=== PATIENT | female | born 1930 | race Caucasian/White ===

== ENCOUNTER → 2017-04-07 | Outpatient (CLI) | payer MEDICARE | LOC: M PLARAD 12:39 | DX: C18.9 Malignant neoplasm of colon, unspecified (principal) | CPT/HCPCS: 78815 ==

== ENCOUNTER → 2018-06-28 | Outpatient (REF) | payer MEDICARE, OTHER | LOC: M LAB LCGH 13:44 | PROVIDERS: ATTEND Surgery | DX: K81.1 Chronic cholecystitis (principal) ==

== ENCOUNTER 2019-06-03 01:06 | Inpatient (IN) | payer MEDICARE, MEDICAID ==
[~2019-06-03] VITALS: Ht 157.5 cm; Wt 68.5 kg
[2019-06-03] VITALS (11 sets, daily range): BP systolic 91–179; BP diastolic 54–80
[2019-06-03] MEDS ORDERED: SERT50TA29 PO (01:58)
[2019-06-03] MEDS ORDERED: HYOS125TA PO (01:58)
[2019-06-03] MEDS ORDERED: ISOS30TA4 PO (01:58)
[2019-06-03] MEDS ORDERED: TYLE650T38 PO (01:58)
[2019-06-03] MEDS ORDERED: GABA-1171 PO (01:58)
[2019-06-03] MEDS ORDERED: ASPI1CHW3 PO (01:58)
[2019-06-03] MEDS ORDERED: FERR325T16 PO (01:58)
[2019-06-03] MEDS ORDERED: TAB-TAB PO (01:58)
[2019-06-03] MEDS ORDERED: CYAN100050 PO (01:58)
[2019-06-03] MEDS ORDERED: ANTI2TAB17 PO (01:58)
[2019-06-03] MEDS ORDERED: ATOR40TA75 PO (01:58)
[2019-06-03] MEDS ORDERED: FIBE625T PO (01:58)
[2019-06-03] MEDS ORDERED: ONDA-83 PO (01:58)
[2019-06-03] MEDS ORDERED: D-50CAP PO (01:58)
[2019-06-03] MEDS ORDERED: PRED20TA PO (01:58)
[2019-06-03] MEDS ORDERED: CARV3.12 PO (01:58)
[2019-06-03] MEDS ORDERED: OCUVTAB8 PO (01:58)
[2019-06-03] MEDS ORDERED: XALA0.007 OU (01:58)
[2019-06-03] MEDS ORDERED: LIDO5OIN19 EXT (01:58)
[2019-06-03 02:02] LABS: BASO % 0.2 % (0.0-1.0); EOS % 0.2 % (0.0-3.0); HEMATOCRIT 29.6 % (36.0-47.0); HEMOGLOBIN 9.8 g/dl (12.0-15.5); LYMPH # 2.8 10^3/uL (1.5-5.0); LYMPH % 25.5 % (24.0-44.0); MEAN CORPUSCULAR HGB CONC 33.1 g/dl (32.0-36.5); MEAN CORPUSCULAR VOLUME 93.7 fl (80.0-96.0); MONO % 9.5 % (0.0-5.0); NEUTROPHILS % 64.3 % (36.0-66.0); PLATELET COUNT, AUTOMATED 319 10^3/uL (150-450); RED BLOOD COUNT 3.16 10^6/uL (4.00-5.40); WHITE BLOOD COUNT 10.9 10^3/uL (4.0-10.0)
[2019-06-03 02:12] LABS: INR 1.27; PROTHROMBIN TIME 15.6 SECONDS (11.8-14.0)
[2019-06-03 02:32] LABS: BLOOD UREA NITROGEN 20 MG/DL (7-18); CALCIUM LEVEL 8.6 MG/DL (8.8-10.2); CARBON DIOXIDE LEVEL 28 MEQ/L (21-32); CHLORIDE LEVEL 108 MEQ/L (98-107); CREATININE FOR GFR 0.74 MG/DL (0.55-1.30); FERRITIN 66 NG/ML (8-252); GLOMERULAR FILTRATION RATE > 60.0 (>32); GLUCOSE, FASTING 104 MG/DL (70-100); IRON (FE) 40 UG/DL (50-170); PERCENT SATURATION 12.1 % (13.2-45.0); POTASSIUM SERUM 4.1 MEQ/L (3.5-5.1); SODIUM LEVEL 139 MEQ/L (136-145); TOTAL IRON BINDING CAPACITY 331 UG/DL (250-450)
[2019-06-03] MEDS ORDERED: HYOSCYAMINE SULFATE 0.125 MG SUBL TABLET PO PRN (02:45)
--- NOTE | 2019-06-03 03:05 | IPNPDOC ---
Text Note Date of Service The patient was seen on 06/03/19. NOTE Time of service 2:40 AM Ms. Leiva is an 88-year-old with a history of CAD, NH, CABG, hypertension, dyslipidemia, and partial colectomy for reason she couldn't remember who is ad mitted for evaluation of lower GI bleed. She admits to having lower abdominal pain, and 2 episodes of loose bowel movements per day. She denies having chest pain, shortness of breath, or dizziness. Per discussion with Dr. Fernandes the rectal exam was positive for hemorrhoids and melena. 1. Acute blood loss anemia secondary lower GI Bleed Differential diagnosis includes: diverticulosis, angiodysplasia's (most common cause of small-bowel bleeding in older patients), polyps, colorectal cancer, hemorrhoids, & less likely anal fissure [place] score to predict risk of readmission for GI bleed = 17 to 19 points = discharge not recommended Hemoglobin has dropped to 9 from her baseline of 12.8 Plan: admit to medical the floor/ CLD w IVF pending GI consult w / hold ASA / hold iron pending C-scope / f/u retic #, iron panel & serial Hg / bc of hx of CAD/CABG will aim for Hg >8 / obtain records from [facility] regarding previous colonoscopies and colon surgeries Rest per 's H&P VS,Timur, I+O VS, Timur, I+O Laboratory Tests 06/03/19 01:52 Vital Signs Date Time Temp Pulse Resp B/P (MAP) Pulse Ox O2 Delivery O2 Flow Rate FiO2 06/03/19 02:00 120/79 (93) 06/03/19 01:51 67 98 06/03/19 01:20 97.5 19 Room Air VAN ORALNDO MD Jun 03, 2019 03:05
--- NOTE | 2019-06-03 03:12 | HPEPDOC ---
[facility] Medical History & Physical Date of Admission Jun 03, 2019 Date of Service: Jun 03, 2019 Primary Care Physician: Aidan Lynne Attending Physician: VAN ORLANDO MD History and Physical CHIEF COMPLAINT: Bloody stool HISTORY OF PRESENT ILLNESS:. Patient is a 88-year-old female presents to [facility] emergency department with complaint of bright red blood per rectum. She states she had an episode of bloody stool approximately 2 months ago, however, did not tell anyone, including her primary care physician. Patient is an overall poor historian. At around 2345 on 06/02/2019 she went to use the bathroom and noticed that the toilet bowl was filled with bright red blood. Since that time she has had an additional 2 more episodes of bloody stool which is filled the toilet bowl. She denies any abdominal pain. She denies any nausea or vomiting. Of note, the patient had been diagnosed with colon cancer and states that she had a partial colectomy and reanastomosis. She denies ever receiving chemotherapy or radiation therapy. She states she does not follow with oncologist. She currently denies any shortness of breath, chest pain, lightheadedness, or palpitations. She states that she does have "pain all over her bones" for which she was recently started on prednisone by her primary care physician for. In the emergency room the patient was vitally stable. She received a CBC and BMP was demonstrated, hemoglobin 9.8, hematocrit of 29.6. Hospitalist service was consulted and patient was admitted for further evaluation and management PAST MEDICAL HISTORY: 1. History of colon cancer. 2. Coronary artery disease status post quadruple bypass surgery 3. Iron deficiency anemia 4. Hypertension 5. Open angle glaucoma 6. Depression\\anxiety 7. Chronic pain PAST SURGICAL HISTORY: 1. Partial colectomy with reanastomosis. 2. Colonoscopy. 3. Cholecystectomy 4. Hysterectomy 5. Right total knee replacement 6. Tonsillectomy SOCIAL HISTORY: Patient lives at [facility] assisted living in [place]. 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 .She is a former smoker. She started smoking at the age of 22 and quit in 2004. She smoked approximately 3 packs per day and her most. . She takes alcohol occasionally. She denies any history of IV or illicit drug use FAMILY HISTORY: Patient's mother and father both . She has 5 daughters, all of whom are alive and well ALLERGIES: Please see below. REVIEW OF SYSTEMS: CONSTITUTIONAL: Denies fevers, chills. Admits to some unintentional weight loss. Denies any night sweats HEENT: Denies Dysphagia, odynophagia. No change in vision. Denies headache. CARDIOVASCULAR: Denies chest pain, palpitations or feelings of heart racing. RESPIRATORY: Denies Shortness of breath, wheezing, cough. GASTROINTESTINAL: Denies abdominal pain. Admits to bloody stools. Admits to loose stools. GENITOURINARY:. Denies dysuria or increased frequency. SKIN: Denies rashes or lesions. MUSCULOSKELETAL: Chronic pain in her "bones" all over. NEUROLOGICAL:. Denies any changes in gait or speech. PSYCHIATRIC:. Admits to history of depression, anxiety. ENDOCRINE: Denies heat intolerance or cold intolerance. Denies history of maggy betes. HEMATOLOGIC/LYMPHATIC:. Denies history of easy waiting or bruising. Denies history of deep vein thrombosis or pulmonary embolism HOME MEDICATIONS: Please see below. PHYSICAL EXAMINATION: VITAL SIGNS: Temperature 97.5, pulse 70, respiratory rate 18, blood pressure, 178\\74, pulse oximetry, 98 % on room air. GENERAL APPEARANCE: Patient is Awake, alert. And oriented. . She appears in no Acute distress. She is lying comfortably in stretcher. HEENT: Atraumatic normocephalic. Eyes are nonicteric. Trachea is midline, mucous mucous membranes are pink and moist. No conjunctival pallor CARDIOVASCULAR: Normal S1, S2, regular rate and rhythm, 2\\6 systolic ejection murmur. No clicks or rubs. LUNGS:. Clear vesicular breath sounds bilaterally. Good respiratory effort. No wheezes, rhonchi, rales. ABDOMEN: Soft, nondistended, nontender, no rebound tenderness or guarding. Normoactive bowel sounds throughout. EXTREMITIES: No edema. Full and equal pulses in bilateral upper and lower extremities. NEUROLOGICAL: No Focal neurological deficits. PSYCHIATRIC: Mood and affect appear appropriate. LABORATORY DATA: See below. IMAGING: None MICROBIOLOGY: Please see below. ASSESSMENT:. Patient is an 88-year-old female who presented to [facility]. MRSA part with complaint of bright red blood per rectum 3. On presentation the patient was finally stable and was admitted for further evaluation and management. . PLAN: 1. Acute Blood Loss Anemia 2/2 Lower GI Bleed -Patient had bright red blood per rectum likely secondary to a lower GI bleed -Patient is vitally stable and hypertensive to normotensive. -Hemoglobin of 9.8, unclear patient's baseline. However, history of iron de ficiency anemia. Will trend hemoglobin and hematocrit every 6 hours -Orthostatic Vital signs every 4 hours until negative -Nash score of 18, indicating 50% probability of further intervention. -Consider gastroenterology consultation in a.m. -Protonix twice a day -Clear liquid diet 2. History of colon cancer -Patient states he has a history of colon cancer. She is overall a poor historian. Per the medical records available in the EMR. The patient did have a PET/CT demonstrating a single 3.2 cm hypermetabolic focus in the proximal transverse colon was compatible with neoplasm -Patient states she had a partial colectomy with reanastomosis. She denies any history of chemotherapy or radiation therapy. 3. Coronary artery disease -Patient states she is a history of coronary artery disease status post quadruple bypass. She states she has 4 stents placed. She says that her most rec ent stent was greater than 2-3 years ago -Will continue patient's atorvastatin. Will hold aspirin due to ongoing bleeding. 4. Iron deficiency anemia -We'll continue ferrous gluconate 324 mg 5. Chronic pain -Continue gabapentin 100 mg 3 times a day 6. Depression, anxiety -Continue Zoloft 50 mg daily by mouth 7. DVT prophylaxis -Teds and sequentials Vital Signs Vital Signs Date Time Temp Pulse Resp B/P (MAP) Pulse Ox O2 Delivery O2 Flow Rate FiO2 06/03/19 02:00 120/79 (93) 06/03/19 01:51 67 98 06/03/19 01:20 97.5 19 Room Air Laboratory Data Labs 24H Laboratory Tests 2 06/03/19 01:52: Immature Granulocyte % (Auto) 0.3, Neutrophils (%) (Auto) 64.3, Lymphocytes (%) (Auto) 25.5, Monocytes (%) (Auto) 9.5H, Eosinophils (%) (Auto) 0.2, Basophils (%) (Auto) 0.2, Neutrophils # (Auto) 7.0, Lymphocytes # (Auto) 2.8, Monocytes # (Auto) 1.0H, Eosinophils # (Auto) 0.0, Basophils # (Auto) 0.0, Reticulocyte # (auto) 136.5H, Nucleated Red Blood Cells % (auto) 0.0, Percent Reticulocyte Count 4.3H, Reticulocyte Hemoglobin Equivalent 32.7, Prothrombin Time 15.6H, Prothromb Time International Ratio 1.27, Activated Partial Thromboplast Time 30.0, Anion Gap 3L, Glomerular Filtration Rate > 60.0, Calcium Level 8.6L, Iron Level 40L, Total Iron Binding Capacity 331, Transferrin % Saturation 12.1L, Ferritin 66 CBC/BMP Laboratory Tests 06/03/19 01:52 Home Medications Scheduled Aspirin (Aspirin) 81 Mg Tab.chew, 81 MG PO DAILY Atorvastatin Calcium (Atorvastatin Calcium) 40 Mg Tablet, 40 MG PO QHS Calcium Polycarbophil (Fibercon) 625 Mg Tablet, 625 MG PO BID Carvedilol (Carvedilol) 3.125 Mg Tablet, 3.125 MG PO BID Cholecalciferol (Vitamin D3) (Vitamin D3) 125 Mcg Capsule, 125 MCG PO DAILY Cyanocobalamin (Vitamin B-12) (Vitamin B-12) 1,000 Mcg Tablet, 1,000 MCG PO DAILY Ferrous Gluconate (Ferrous Gluconate) 324 Mg Tablet, 324 MG PO Q2D EVERY OTHER MORNING Gabapentin (Gabapentin) 100 Mg Capsule, 100 MG PO TID Isosorbide Mononitrate (Isosorbide Mononitrate ER) 30 Mg Tab.er.24h, 30 MG PO DAILY Latanoprost (Xalatan) 0.005% 2.5ML Drops, 1 DROP OU QHS Lidocaine (Lidocaine) 120 Gm Oint...g., 1 DOSE EXT QHS APPLIES TO RIGHT HAND AND WRIST Multivitamin (Tab-A-Sully) 1 Each Tablet, 1 TAB PO DAILY Mv-Min/FA/Vit K/Lycop/Lut/Zeax (Ocuvite Eye Plus Multi Tablet) 1 Each Tablet, 1 TAB PO DAILY Prednisone (Prednisone) 20 Mg Tablet, 20 MG PO DAILY Sertraline HCl (Sertraline HCl) 50 Mg Tablet, 50 MG PO DAILY Scheduled PRN Acetaminophen (Tylenol 8 Hour) 650 Mg Tablet.er, 650 MG PO TID PRN for PAIN Hyoscyamine Sulfate (Hyoscyamine Sulfate) 0.125 Mg Tab.subl, 0.125 MG PO QID PRN for ABDOMINAL PAIN Loperamide HCl (Anti-Diarrheal) 2 Mg Tablet, 2 MG PO ASDIRECTED PRN for DIARRHEA TWO TABLETS AFTER FIRST LOOSE STOOL, THEN 1 TABLET THEREAFTER NEEDED Ondansetron HCl (Ondansetron HCl) 4 Mg Tablet, 4 MG PO TID PRN for NAUSEA Allergies Coded Allergies: Aminoglycosides (Verified Allergy, Unknown, 06/03/19) SWELLING bacitracin (Verified Allergy, Unknown, 06/03/19) SWELLING enalapril (Verified Allergy, Unknown, 06/03/19) SWELLING lisinopril (Verified Allergy, Unknown, 06/03/19) SWELLING meloxicam (Verified Allergy, Unknown, 06/03/19) HALLUCINATIONS neomycin (Verified Allergy, Unknown, 06/03/19) SWELLING polymyxin B (Verified Allergy, Unknown, 06/03/19) SWELLING simvastatin (Verified Allergy, Unknown, 06/03/19) SWELLING terbinafine (Verified Allergy, Unknown, 06/03/19) SWELLING A-FIB/CHADSVASC A-FIB History Current/History of A-Fib/PAF?: No AMBAR SUTTON DO Jun 03, 2019 03:12 VAN ORLANDO MD Jun 03, 2019 03:31
[2019-06-03 05:57] LABS: BLOOD UREA NITROGEN 18 MG/DL (7-18); CALCIUM LEVEL 8.4 MG/DL (8.8-10.2); CARBON DIOXIDE LEVEL 27 MEQ/L (21-32); CHLORIDE LEVEL 108 MEQ/L (98-107); CREATININE FOR GFR 0.68 MG/DL (0.55-1.30); GLOMERULAR FILTRATION RATE > 60.0 (>32); GLUCOSE, FASTING 105 MG/DL (70-100)
[2019-06-03 07:24] LABS: POTASSIUM SERUM 3.8 MEQ/L (3.5-5.1); SODIUM LEVEL 139 MEQ/L (136-145)
[2019-06-03] MEDS: SERTRALINE HCL 50 MG TAB PO SCH (08:11)
[2019-06-03] MEDS: PANTOPRAZOLE 40MG INJ (PROTONIX) (C9113) IV SCH ×2 (08:11→20:27)
[2019-06-03] MEDS: OCUVITE 1 TAB PO SCH (08:11)
[2019-06-03] MEDS: GABAPENTIN 100 MG CAP PO SCH ×3 (08:11→20:27)
[2019-06-03] MEDS ORDERED: FERROUS GLUCONATE 324 MG TAB PO SCH (09:00)
[2019-06-03] MEDS ORDERED: MOM 30ML SUSPENSION UDC PO ONE (14:00)
[2019-06-03] MEDS ORDERED: POLYETHYLENE GLYCOL (MIRALAX) 238GM BOTTLE PO ONE (15:00)
[2019-06-03] MEDS: LIDOCAINE 5% OINT 30 GM EXT SCH (20:27)
[2019-06-03] MEDS: ATORVASTATIN 20 MG TAB PO SCH (20:27)
[2019-06-03] MEDS: LATANOPROST 0.005% OPHTH SOLN 2.5 ML OU SCH (20:27)
[2019-06-04] VITALS (8 sets, daily range): BP systolic 99–152; BP diastolic 54–78
[2019-06-04] MEDS: ACETAMINOPHEN TAB 650MG DOSE (2X325MG) PO PRN ×2 (05:58→16:20)
[2019-06-04 06:45] LABS: BLOOD UREA NITROGEN 11 MG/DL (7-18); CALCIUM LEVEL 8.8 MG/DL (8.8-10.2); CARBON DIOXIDE LEVEL 29 MEQ/L (21-32); CHLORIDE LEVEL 105 MEQ/L (98-107); CREATININE FOR GFR 0.78 MG/DL (0.55-1.30); GLOMERULAR FILTRATION RATE > 60.0 (>32); GLUCOSE, FASTING 95 MG/DL (70-100); POTASSIUM SERUM 4.1 MEQ/L (3.5-5.1); SODIUM LEVEL 137 MEQ/L (136-145)
[2019-06-04] MEDS: PANTOPRAZOLE 40MG INJ (PROTONIX) (C9113) IV SCH (08:14)
[2019-06-04] MEDS ORDERED: propofoL 200 MG/20 ML VIAL As Ordered ONE ×4 (09:16→22:19)
--- NOTE | 2019-06-04 09:36 | IPNPDOC ---
Subjective Date Seen The patient was seen on 06/04/19. Subjective Chief Complaint/HPI When asked, patient that she had any problems, she replies "I don't know". , But she is very pleasant doesn't seem in any distress General: Denies: ROS Unobtainable, Chills, Night Sweats, Fatigue, Malaise, Normal Appetite, Other Symptoms Constitutional: Denies: Chills, Fever, Malaise, Night Sweats, Weakness, Fatigue, Weight Loss, Lethargy, Other Pulmonary: Denies: Dyspnea, Cough, Pleuritic Chest Pain, Other Symptoms Cardiovascular: Denies: Chest Pain, Palpitations, Orthopnea, Paroxysmal Noc. Dyspnea, Edema, Lt Headedness, Other Symptoms Gastrointestinal: Reports: Melena Hematologic: Denies: Bruising, Bleeding Excessively, Petecchia, Purpura, Enlarged Lymph Nodes, Other Hematologic Endocrine: Denies: Polydipsia, Polyphagia, Polyuria, Heat Intolerance, Cold Intolerance, Other Endocrine Sx Musculoskeletal: Denies: Neck Pain, Back Pain, Shoulder Pain, Arm Pain, Hand Pain, Leg Pain, Foot Pain, Joint Pain, Muscle Pain, Spasms, Other Symptoms Neurological: Denies: Weakness, Numbness, Incoordination, Change in speech, Confusion, Seizures, Other Symptoms Objective Physical Examination General Exam: Positive: Alert, Cooperative Eye Exam: Positive: PERRLA, Conjunctiva & lids normal ENT Exam: Positive: Mucous membr. moist/pink Neck Exam: Positive: Supple Chest Exam: Positive: Clear to auscultation, Normal air movement Heart Exam: Positive: Rate Normal, Normal S1, Normal S2 Abdomen Exam: Positive: Normal bowel sounds, Soft Extremity Exam: Positive: Normal pulses Skin Exam: Positive: Nl turgor and temperature Neuro Exam: Positive: Strength at 5/5 X4 ext, Sensation Intact Assessment /Plan Problems (1) Lower GI bleed Status: Acute Problem Text: Lower GI bleed secondary to unknown etiology but patient does have a history of hemorrhoids as well as colon cancer GI consult was called , still pending. We will call Dr. Jc and discuss further management Patient's hemoglobin is 11.3 after transfusion We'll continue monitoring CBC and transfuse as needed Continue present meds Further recommendations as per GI (2) Acute blood loss anemia Status: Acute Problem Text: Acute blood loss anemia secondary to lower GI bleed H&H stable now secondary to transfusion, hemoglobin is 11.3 today Continue observing CBC and transfuse as needed Pending GI recommendations Continue Protonix twice a day and clear liquid diet (3) History of colon cancer Status: Chronic Problem Text: History of colon cancer Patient states he has a history of colon cancer. She is overall a poor historian. Per the medical records available in the EMR. The patient did have a PET/CT demonstrating a single 3.2 cm hypermetabolic focus in the proximal transverse colon was compatible with neoplasm Patient states she had a partial colectomy with reanastomosis. She denies any history of chemotherapy or radiation therapy. (4) CAD (coronary artery disease) Status: Acute Problem Text: Coronary artery disease Patient states she is a history of coronary artery disease status post quadruple bypass. She states she has 4 stents placed. She says that her most recent stent was greater than 2-3 years ago Will continue patient's atorvastatin. Will hold aspirin due to ongoing bleeding. Plan/VTE VTE Prophylaxis Ordered?: Yes VS, I&O, 24H, Fishbone Vital Signs/I&O Vital Signs Date Time Temp Pulse Resp B/P (MAP) Pulse Ox O2 Delivery O2 Flow Rate FiO2 06/04/19 06:01 79 146/68 (94) 90 128/70 (89) 108 99/54 (69) 06/04/19 06:00 97.8 18 98 Room Air I&O- Last 24 Hours up to 6 AM 06/04/19 06:00 Intake Total 3290 ml Balance 3290 ml Laboratory Data 24H LABS Laboratory Tests 2 06/03/19 22:55: Troponin I < 0.02 06/04/19 06:10: Anion Gap 3L, Glomerular Filtration Rate > 60.0, Calcium Level 8.8 CBC/BMP Laboratory Tests 06/03/19 11:59 06/03/19 19:39 06/04/19 00:10 06/04/19 06:10 CUONG ESQUIVEL MD Jun 04, 2019 09:36
--- NOTE | 2019-06-04 10:07 | ROOR ---
Patient Name: Mally Leiva Procedure Date: 06/04/2019 6:25 AM Date of : 1930 Age: 88 Room: Main OR Gender: Female Note Status: Finalized Procedure: Colonoscopy Indications: Hematochezia, Acute post hemorrhagic anemia Providers: Candido YBARRA MD Referring MD: 2. Inpatient 2. Inpatient, JODY BELL MD Requesting Provider: Medicines: Monitored Anesthesia Care Complications: No immediate complications. Procedure: Pre-Anesthesia Assessment: - The heart rate, respiratory rate, oxygen saturations, blood pressure, adequacy of pulmonary ventilation, and response to care were monitored throughout the procedure. The Colonoscope was introduced through the anus and advanced to 10 cm into the ileum. The patient tolerated the procedure well. The colonoscopy was technically difficult and complex due to excessive bleeding. Successful completion of the procedure was aided by lavage. Findings: The perianal and digital rectal examinations were normal. There was evidence of a prior functional end-to-end ileo-colonic anastomosis at the hepatic flexure. This was patent and was characterized by erosion, a hemorrhagic appearance and an intact staple line. The anastomosis was traversed. Bleeding ulcerated mucosa with stigmata of recent bleeding were present at the anastomosis. For hemostasis, four hemostatic clips were successfully placed. There was no bleeding at the end of the procedure. Multiple medium-mouthed diverticula were found in the sigmoid colon and descending colon. Internal hemorrhoids were found during retroflexion. The hemorrhoids were moderate. Impression: - Patent ileo-colonic anastomosis,with a small hemorrhagic appearing mucosal ulceration. Clips were placed. - Moderate diverticulosis in the sigmoid colon and in the descending colon. - Internal hemorrhoids. - Suboptimal visual with fresh blood and clots throughout entire colon up to anastomosis. The neoterminal ileum is free of blood. - No specimens collected. Recommendation: - [facility]. - [facility] until patient is stable. - Clear liquid diet today. - If no futher bleeding in am, can advance diet and plan for discharge tomorrow. - She does not need routine follow up with me. - Return to referring physician (date not yet determined). Candido Ybarra MD Candido YBARRA MD 06/04/2019 10:06:44 AM Electronically signed by Candido YBARRA MD Number of Addenda: 0 Note Initiated On: 06/04/2019 6:25 AM Estimated Blood Loss: Estimated blood loss: none.
[2019-06-04] MEDS: OCUVITE 1 TAB PO SCH (10:39)
[2019-06-04] MEDS: GABAPENTIN 100 MG CAP PO SCH ×2 (10:40→16:20)
[2019-06-04] MEDS: SERTRALINE HCL 50 MG TAB PO SCH (10:40)
[2019-06-04 18:13] LABS: HEMATOCRIT 30.6 % (36.0-47.0); HEMOGLOBIN 10.3 g/dl (12.0-15.5)
--- NOTE | 2019-06-04 23:02 | ROOR ---
Patient Name: Mally Leiva Procedure Date: 06/04/2019 9:32 PM Date of : 1930 Age: 88 Gender: Female Note Status: Finalized Procedure: Colonoscopy Indications: Hematochezia. (Colonoscopy #2 today for persistent bleeding or rebleeding). 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 Pt with hx colon cancer resection 2012 and 2017) Providers: Candido YBARRA MD Referring MD: 2. Inpatient 2. Inpatient Requesting Provider: Medicines: Monitored Anesthesia Care Complications: No immediate complications. Procedure: Pre-Anesthesia Assessment: - The heart rate, respiratory rate, oxygen saturations, blood pressure, adequacy of pulmonary ventilation, and response to care were monitored throughout the procedure. The Colonoscope was introduced through the anus and advanced to 10 cm into the ileum. The colonoscopy was performed without difficulty. The patient tolerated the procedure well. The quality of the bowel preparation was unsatisfactory. Findings: The perianal and digital rectal examinations were normal. There was evidence of a prior functional end-to-end colo-rectal anastomosis at the hepatic flexure. This was characterized by erosion, erythema and ulceration. For hemostasis, four hemostatic clips were successfully placed. There was no bleeding at the end of the procedure. One small petechia was found in the transverse colon. One hemostatic clip was successfully placed. There was no bleeding at the end of the procedure. Moderate sigmoid diverticulosis and small internal hemorrhoids. Impression: - Fresh and old blood from ileocolonic anastomosis to rectum. The Ileum is free of blood). - Functional end-to-end colo-rectal anastomosis in the hepatic flexure. - The anastomosis shows a small erosion, erythema with [address] I do not see active bleeding. 3 additional clips were placed. - A small petechia (dubious significance) in the transverse colon. One clip was placed. - Moderate sigmoid diverticulosis and small internal hemorrhoids. - No specimens collected. Recommendation: - Clear liquid diet. - [facility]. - Observe clinical course. Candido Ybarra MD Candido YBARRA MD 06/04/2019 11:01:14 PM Electronically signed by Candido YBARRA MD Number of Addenda: 0 Note Initiated On: 06/04/2019 9:32 PM Estimated Blood Loss: Estimated blood loss: none.
[2019-06-05] MEDS: PANTOPRAZOLE 40MG INJ (PROTONIX) (C9113) IV SCH ×3 (00:04→20:29)
[2019-06-05] MEDS: ATORVASTATIN 20 MG TAB PO SCH ×2 (00:04→20:29)
[2019-06-05] MEDS: GABAPENTIN 100 MG CAP PO SCH ×4 (00:04→20:28)
[2019-06-05] MEDS: LIDOCAINE 5% OINT 30 GM EXT SCH ×2 (00:04→20:28)
[2019-06-05] MEDS: LATANOPROST 0.005% OPHTH SOLN 2.5 ML OU SCH ×2 (00:05→20:29)
[2019-06-05 00:10] VITALS: BP 124/54
[2019-06-05 06:00] VITALS: BP 133/74
[2019-06-05 06:39] LABS: BLOOD UREA NITROGEN 9 MG/DL (7-18); CARBON DIOXIDE LEVEL 27 MEQ/L (21-32); CHLORIDE LEVEL 106 MEQ/L (98-107); GLOMERULAR FILTRATION RATE > 60.0 (>32); GLUCOSE, FASTING 110 MG/DL (70-100); HEMATOCRIT 30.2 % (36.0-47.0); HEMOGLOBIN 10.1 g/dl (12.0-15.5); POTASSIUM SERUM 3.8 MEQ/L (3.5-5.1); SODIUM LEVEL 141 MEQ/L (136-145)
[2019-06-05] MEDS: SERTRALINE HCL 50 MG TAB PO SCH (08:16)
[2019-06-05] MEDS: OCUVITE 1 TAB PO SCH (08:16)
[2019-06-05] MEDS: ACETAMINOPHEN TAB 650MG DOSE (2X325MG) PO PRN ×2 (08:17→16:20)
--- NOTE | 2019-06-05 09:13 | ECGEPIP ---
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
--- NOTE | 2019-06-05 09:54 | IPNPDOC ---
Subjective Date Seen The patient was seen on 06/05/19. Subjective Chief Complaint/HPI Patient did not had any more BM since last night complaining of some stomach pain General: Denies: ROS Unobtainable, Chills, Night Sweats, Fatigue, Malaise, Normal Appetite, Other Symptoms Constitutional: Denies: Chills, Fever, Malaise, Night Sweats, Weakness, Fatigue, Weight Loss, Lethargy, Other Pulmonary: Denies: Dyspnea, Cough, Pleuritic Chest Pain, Other Symptoms Cardiovascular: Denies: Chest Pain, Palpitations, Orthopnea, Paroxysmal Noc. Dyspnea, Edema, Lt Headedness, Other Symptoms Gastrointestinal: Reports: Other Symptoms (epigastric pain but no BMs with blood) Genitourinary: Denies: Dysuria, Frequency, Incontinence, Hematuria, Retention, Other Symptoms Hematologic: Denies: Bruising, Bleeding Excessively, Petecchia, Purpura, Enlarged Lymph Nodes, Other Hematologic Endocrine: Denies: Polydipsia, Polyphagia, Polyuria, Heat Intolerance, Cold Intolerance, Other Endocrine Sx Musculoskeletal: Denies: Neck Pain, Back Pain, Shoulder Pain, Arm Pain, Hand Pain, Leg Pain, Foot Pain, Joint Pain, Muscle Pain, Spasms, Other Symptoms Neurological: Denies: Weakness, Numbness, Incoordination, Change in speech, Confusion, Seizures, Other Symptoms Objective Physical Examination Eye Exam: Positive: PERRLA, Conjunctiva & lids normal Chest Exam: Positive: Clear to auscultation, Normal air movement Heart Exam: Positive: Rate Normal, Normal S1, Normal S2 Abdomen Exam: Positive: Normal bowel sounds, Soft Extremity Exam: Positive: Normal pulses Skin Exam: Positive: Nl turgor and temperature Neuro Exam: Positive: Strength at 5/5 X4 ext, Sensation Intact Assessment /Plan Problems (1) Lower GI bleed Status: Acute Problem Text: Status post colonoscopy by Dr. Romo Most likely source was from anastomosis side with clipping was done Patient's hemoglobin is stable at the present time 10.130.2 . No more complaints of bowel movements with blood Further recommendations as per GI Sudhir H&H closely and transfuse as needed (2) Acute blood loss anemia Status: Resolved Problem Text: Acute blood loss anemia secondary to lower GI bleed H&H stable now secondary to transfusion, , hemoglobin is 10.1 Will monitor hemoglobin and transfuse as needed (3) History of colon cancer Status: Chronic Problem Text: History of colon cancer Patient states he has a history of colon cancer. She is overall a poor historian. Per the medical records available in the EMR. The patient did have a PET/CT demonstrating a single 3.2 cm hypermetabolic focus in the proximal transverse colon was compatible with neoplasm Patient states she had a partial colectomy with reanastomosis. She denies any history of chemotherapy or radiation therapy. (4) CAD (coronary artery disease) Status: Acute Problem Text: Coronary artery disease Patient states she is a history of coronary artery disease status post quadruple bypass. She states she has 4 stents placed. She says that her most recent stent was greater than 2-3 years ago Will continue patient's atorvastatin. Will hold aspirin due to ongoing bleeding. Plan/VTE VTE Prophylaxis Ordered?: Yes VS, I&O, 24H, Fishbone Vital Signs/I&O Vital Signs Date Time Temp Pulse Resp B/P (MAP) Pulse Ox O2 Delivery O2 Flow Rate FiO2 06/05/19 06:00 98.2 102 19 133/74 (93) 98 Room Air I&O- Last 24 Hours up to 6 AM 06/05/19 06:00 Intake Total 860 ml Balance 860 ml Laboratory Data 24H LABS Laboratory Tests 2 06/05/19 06:01: Anion Gap 8, Glomerular Filtration Rate > 60.0, Calcium Level 8.0L CBC/BMP Laboratory Tests 06/04/19 18:02 06/05/19 06:01 CUONG ESQUIVEL MD Jun 05, 2019 09:54
[2019-06-05] MEDS ORDERED: MAALOX 30 ML SUSP *UDC PO PRN (10:00)
[2019-06-05 14:00] VITALS: BP 155/74
[2019-06-05 18:13] LABS: HEMATOCRIT 31.8 % (36.0-47.0); HEMOGLOBIN 10.7 g/dl (12.0-15.5)
[2019-06-05 22:00] VITALS: BP 152/73
[2019-06-06 06:00] VITALS: BP 141/70
[2019-06-06] MEDS: ACETAMINOPHEN TAB 650MG DOSE (2X325MG) PO PRN (06:07)
[2019-06-06 06:15] LABS: HEMATOCRIT 30.1 % (36.0-47.0); HEMOGLOBIN 9.9 g/dl (12.0-15.5)
[2019-06-06 06:30] LABS: BLOOD UREA NITROGEN 10 MG/DL (7-18); CALCIUM LEVEL 8.2 MG/DL (8.8-10.2); CARBON DIOXIDE LEVEL 28 MEQ/L (21-32); CHLORIDE LEVEL 106 MEQ/L (98-107); GLOMERULAR FILTRATION RATE > 60.0 (>32); GLUCOSE, FASTING 106 MG/DL (70-100); POTASSIUM SERUM 3.7 MEQ/L (3.5-5.1); SODIUM LEVEL 141 MEQ/L (136-145)
[2019-06-06] MEDS: GABAPENTIN 100 MG CAP PO SCH ×3 (08:13→20:20)
[2019-06-06] MEDS: OCUVITE 1 TAB PO SCH (08:13)
[2019-06-06] MEDS: SERTRALINE HCL 50 MG TAB PO SCH (08:13)
[2019-06-06] MEDS: PANTOPRAZOLE 40MG INJ (PROTONIX) (C9113) IV SCH ×2 (08:13→20:20)
--- NOTE | 2019-06-06 10:32 | IPNPDOC ---
Subjective Date Seen The patient was seen on 06/06/19. Subjective Chief Complaint/HPI Patient is comfortable, no distress. No more episodes of bleeding per rectum General: Denies: Chills, Night Sweats, Fatigue, Malaise, Normal Appetite, Other Symptoms Constitutional: Denies: Chills, Fever, Malaise, Night Sweats, Weakness, Fatigue, Weight Loss, Lethargy, Other Pulmonary: Denies: Dyspnea, Cough, Pleuritic Chest Pain, Other Symptoms Cardiovascular: Denies: Chest Pain, Palpitations, Orthopnea, Paroxysmal Noc. Dyspnea, Edema, Lt Headedness, Other Symptoms Gastrointestinal: Denies: Nausea, Vomiting, Abdominal Pain, Diarrhea, Constipation, Melena, Hematochezia, Other Symptoms Musculoskeletal: Denies: Neck Pain, Back Pain, Shoulder Pain, Arm Pain, Hand Pain, Leg Pain, Foot Pain, Joint Pain, Muscle Pain, Spasms, Other Symptoms Neurological: Denies: Weakness, Numbness, Incoordination, Change in speech, Confusion, Seizures, Other Symptoms Objective Physical Examination Eye Exam: Positive: PERRLA, Conjunctiva & lids normal Chest Exam: Positive: Clear to auscultation, Normal air movement Heart Exam: Positive: Rate Normal, Normal S1, Normal S2 Abdomen Exam: Positive: Normal bowel sounds, Soft Extremity Exam: Positive: Normal pulses Skin Exam: Positive: Nl turgor and temperature Neuro Exam: Positive: Strength at 5/5 X4 ext, Sensation Intact Assessment /Plan Problems (1) Lower GI bleed Status: Acute Problem Text: Status post colonoscopy by Dr. Romo Most likely source was from anastomosis side with clipping was done Unfortunately, patient continued to bleed after the first colonoscopy Has a second colonoscopy was done the same day to let night Fresh and old blood was seen at the ileocolonic anastomosis to rectum but the ileum was free of blood There was a functional end-to-end colorectal anastomosis in the hepatic flexure Anastomosis showed a small erosion and erythema and 4 endoclips was seen but no active bleed was noted and 3 additional clips were also placed And patient was recommended to be started on clear liquid diet and monitor H&H by GI Patient is clinically stable. No more bleeding has been noted. Her hemoglobin is 9.9 with hematocrit 30.1 today Will advance diet to regular diet and monitor We'll also request PT, OT evaluation And once patient is clear from physical therapy. She possibly can be discharged home in a day or 2 (2) Acute blood loss anemia Status: Resolved Problem Text: Acute blood loss anemia secondary to lower GI bleed Patient's hemoglobin is stable at 9.9 today Monitor H&H and transfuse as needed (3) History of colon cancer Status: Chronic Problem Text: History of colon cancer Patient states he has a history of colon cancer. She is overall a poor historian. Per the medical records available in the EMR. The patient did have a PET/CT demonstrating a single 3.2 cm hypermetabolic focus in the proximal transverse colon was compatible with neoplasm Patient states she had a partial colectomy with reanastomosis. She denies any h istory of chemotherapy or radiation therapy. (4) CAD (coronary artery disease) Status: Acute Problem Text: Coronary artery disease Patient states she is a history of coronary artery disease status post quadruple bypass. She states she has 4 stents placed. She says that her most recent stent was greater than 2-3 years ago Will continue patient's atorvastatin. Will hold aspirin due to ongoing bleeding. Plan/VTE VTE Prophylaxis Ordered?: Yes VS, I&O, 24H, Fishbone Vital Signs/I&O Vital Signs Date Time Temp Pulse Resp B/P (MAP) Pulse Ox O2 Delivery O2 Flow Rate FiO2 06/06/19 06:00 98.7 87 18 141/70 (93) 95 Room Air I&O- Last 24 Hours up to 6 AM 06/06/19 06:00 Intake Total 960 ml Balance 960 ml Laboratory Data 24H LABS Laboratory Tests 2 06/06/19 05:41: Anion Gap 7L, Glomerular Filtration Rate > 60.0, Calcium Level 8.2L CBC/BMP Laboratory Tests 06/05/19 17:59 06/06/19 05:41 CUONG ESQUIVEL MD Jun 06, 2019 10:32
--- NOTE | 2019-06-06 11:30 | DS.PDOC ---
Discharge Summary General Date of Admission Jun 03, 2019 at 01:39 Date of Discharge 06/07/19 Primary Care Physician: Aidan Lynne MD [facility] Attending Physician: Dorina Victor MD Specialist/Consultants Involve: FIDE LAI MD Discharge Summary ADDEDUM: H&P started on but completed on 06/07/2019 PROCEDURES PERFORMED DURING STAY: None. ADMITTING DIAGNOSES: 1. Lower GI bleed. DISCHARGE DIAGNOSES: 1. lower GI bleed, acute blood loss anemia, CAD, history of colon cancer. COMPLICATIONS/CHIEF COMPLAINT: Lower Gi Bleed. HISTORY OF PRESENT ILLNESS: Patient is a 88-year-old female presents to [facility] emergency department with complaint of bright red blood per rectum. She states she had an episode of bloody stool approximately 2 months ago, however, did not tell anyone, including her primary care physician. Patient is an overall poor historian. At around 2345 on 06/02/2019 she went to use the bathroom and noticed that the toilet bowl was filled with bright red blood. Since that time she has had an additional 2 more episodes of bloody stool which is filled the toilet bowl. She denies any abdominal pain. She denies any nausea or vomiting. Of note, the patient had been diagnosed with colon cancer and stat es that she had a partial colectomy and reanastomosis. She denies ever receiving chemotherapy or radiation therapy. She states she does not follow with oncologist. She currently denies any shortness of breath, chest pain, lightheadedness, or palpitations. She states that she does have "pain all over her bones" for which she was recently started on prednisone by her primary care physician for. In the emergency room the patient was vitally stable. She received a CBC and BMP was demonstrated, hemoglobin 9.8, hematocrit of 29.6. Hospitalist service was consulted and patient was admitted for further evaluation and management. HOSPITAL COURSE: 88 years old, white female was admitted with a lower GI bleed. Patient received a blood transfusion on admission to the hospital Patient was seen by GI and subsequently had colonoscopy done which showed bleeding at the anastomotic site and 4 endoclips were placed in Unfortunately, patient continued to bleed after the first colonoscopy Has a second colonoscopy was done the same day to let night Fresh and old blood was seen at the ileocolonic anastomosis to rectum but the ileum was free of blood There was a functional end-to-end colorectal anastomosis in the hepatic flexure Anastomosis showed a small erosion and erythema and 4 endoclips was seen but no active bleed was noted and 3 additional clips were also placed Patient is clinically stable. No more bleeding has been noted. Her hemoglobin is 9.9 with hematocrit 30.1 today She has tolerated clear liquid diet since 06/07/19 and advanced diet. She did well with PT/OT, no episodes of bleeding. H/H remains stable. Patient discharged home 06/07/19 in improved condition, f/u with PCP in place. DISCHARGE MEDICATIONS: Please see below. ALLERGIES: Please see below. PHYSICAL EXAMINATION ON DISCHARGE: VITAL SIGNS: Please see below. GENERAL: Within normal limits HEENT: Latha extraocular muscles intact NECK: Supple CARDIOVASCULAR EXAMINATION: S1, S2, regular RESPIRATORY EXAMINATION: Clear to A&P ABDOMINAL EXAMINATION: Of nontender, bowel sound present, no organomegaly EXTREMITIES: Clubbing, cyanosis, edema SKIN: Normal NEUROLOGICAL EXAMINATION: . No focal motor sensory deficit PSYCHIATRIC EXAMINATION: Normal LABORATORY DATA: Please see below. IMAGING: None PROGNOSIS: Good ACTIVITY: As tolerated. DIET: As tolerated DISCHARGE PLAN: Discharged back to assisted-living facility DISPOSITION: . Assisting living facility DISCHARGE INSTRUCTIONS: 1. . As per discharge instructions ITEMS TO FOLLOWUP ON ON OUTPATIENT: 1. As per discharge instructions. DISCHARGE CONDITION: Stable. TIME SPENT ON DISCHARGE: 42 minutes. Vital Signs/I&Os Vital Signs Date Time Temp Pulse Resp B/P (MAP) Pulse Ox O2 Delivery O2 Flow Rate FiO2 06/06/19 06:00 98.7 87 18 141/70 (93) 95 Room Air I&O- Last 24 Hours up to 6 AM 06/06/19 06:00 Intake Total 960 ml Balance 960 ml Laboratory Data Labs 24H Laboratory Tests 2 06/06/19 05:41: Anion Gap 7L, Glomerular Filtration Rate > 60.0, Calcium Level 8.2L CBC/BMP Laboratory Tests 06/05/19 17:59 06/06/19 05:41 Discharge Medications Scheduled Atorvastatin Calcium (Atorvastatin Calcium) 40 Mg Tablet, 40 MG PO QHS, (Repo rted) Calcium Polycarbophil (Fibercon) 625 Mg Tablet, 625 MG PO BID, (Reported) Carvedilol (Carvedilol) 3.125 Mg Tablet, 3.125 MG PO BID, (Reported) Cholecalciferol (Vitamin D3) (Vitamin D3) 125 Mcg Capsule, 125 MCG PO DAILY, (Reported) Cyanocobalamin (Vitamin B-12) (Vitamin B-12) 1,000 Mcg Tablet, 1,000 MCG PO DAILY, (Reported) Ferrous Gluconate (Ferrous Gluconate) 324 Mg Tablet, 324 MG PO Q2D, (Reported) EVERY OTHER MORNING Gabapentin (Gabapentin) 100 Mg Capsule, 100 MG PO TID, (Reported) Isosorbide Mononitrate (Isosorbide Mononitrate ER) 30 Mg Tab.er.24h, 30 MG PO DAILY, (Reported) Latanoprost (Xalatan) 0.005% 2.5ML Drops, 1 DROP OU QHS, (Reported) Lidocaine (Lidocaine) 120 Gm Oint...g., 1 DOSE EXT QHS, (Reported) APPLIES TO RIGHT HAND AND WRIST Multivitamin (Tab-A-Sully) 1 Each Tablet, 1 TAB PO DAILY, (Reported) Mv-Min/FA/Vit K/Lycop/Lut/Zeax (Ocuvite Eye Plus Multi Tablet) 1 Each Tablet, 1 TAB PO DAILY, (Reported) Pantoprazole Sodium (Pantoprazole Sodium) 20 Mg Tablet.dr, 20 MG PO DAILY Sertraline HCl (Sertraline HCl) 50 Mg Tablet, 50 MG PO DAILY, (Reported) Scheduled PRN Acetaminophen (Tylenol 8 Hour) 650 Mg Tablet.er, 650 MG PO TID PRN for PAIN, (Reported) Hyoscyamine Sulfate (Hyoscyamine Sulfate) 0.125 Mg Tab.subl, 0.125 MG PO QID PRN for ABDOMINAL PAIN, (Reported) Loperamide HCl (Anti-Diarrheal) 2 Mg Tablet, 2 MG PO ASDIRECTED PRN for DIARRHEA, (Reported) TWO TABLETS AFTER FIRST LOOSE STOOL, THEN 1 TABLET THEREAFTER NEEDED Ondansetron HCl (Ondansetron HCl) 4 Mg Tablet, 4 MG PO TID PRN for NAUSEA, (Reported) Allergies Coded Allergies: Aminoglycosides (Verified Allergy, Unknown, 06/03/19) SWELLING bacitracin (Verified Allergy, Unknown, 06/03/19) SWELLING enalapril (Verified Allergy, Unknown, 06/03/19) SWELLING lisinopril (Verified Allergy, Unknown, 06/03/19) SWELLING meloxicam (Verified Allergy, Unknown, 06/03/19) HALLUCINATIONS neomycin (Verified Allergy, Unknown, 06/03/19) SWELLING polymyxin B (Verified Allergy, Unknown, 06/03/19) SWELLING simvastatin (Verified Allergy, Unknown, 06/03/19) SWELLING terbinafine (Verified Allergy, Unknown, 06/03/19) SWELLING CUONG ESQUIVEL MD Jun 06, 2019 11:30 Dorina Victor MD Jun 07, 2019 18:34
[2019-06-06 14:00] VITALS: BP 117/74
[2019-06-06 18:00] LABS: HEMATOCRIT 31.9 % (36.0-47.0); HEMOGLOBIN 10.4 g/dl (12.0-15.5)
[2019-06-06] MEDS: ATORVASTATIN 20 MG TAB PO SCH (20:19)
[2019-06-06] MEDS: LATANOPROST 0.005% OPHTH SOLN 2.5 ML OU SCH (20:20)
[2019-06-06] MEDS: LIDOCAINE 5% OINT 30 GM EXT SCH (20:20)
[2019-06-06 22:00] VITALS: BP 153/70
[2019-06-07 06:00] VITALS: BP 148/76
[2019-06-07 06:16] LABS: BASO % 0.2 % (0.0-1.0); EOS # 0.3 10^3/uL (0.0-0.5); EOS % 2.1 % (0.0-3.0); HEMATOCRIT 30.4 % (36.0-47.0); HEMOGLOBIN 10.1 g/dl (12.0-15.5); LYMPH # 2.8 10^3/uL (1.5-5.0); LYMPH % 21.9 % (24.0-44.0); MEAN CORPUSCULAR HEMOGLOBIN 30.8 pg (27.0-33.0); MEAN CORPUSCULAR HGB CONC 33.2 g/dl (32.0-36.5); MEAN CORPUSCULAR VOLUME 92.7 fl (80.0-96.0); MONO # 1.3 10^3/uL (0.0-0.8); MONO % 10.1 % (0.0-5.0); NEUTROPHILS # 8.3 10^3/uL (1.5-8.5); NEUTROPHILS % 65.3 % (36.0-66.0); PLATELET COUNT, AUTOMATED 253 10^3/uL (150-450); RED BLOOD COUNT 3.28 10^6/uL (4.00-5.40); WHITE BLOOD COUNT 12.6 10^3/uL (4.0-10.0)
[2019-06-07 06:43] LABS: ALBUMIN 2.6 GM/DL (3.2-5.2); ALT/SGPT 17 U/L (12-78); BILIRUBIN,TOTAL 0.6 MG/DL (0.2-1.0); BLOOD UREA NITROGEN 13 MG/DL (7-18); CALCIUM LEVEL 7.8 MG/DL (8.8-10.2); CARBON DIOXIDE LEVEL 28 MEQ/L (21-32); CHLORIDE LEVEL 107 MEQ/L (98-107); CREATININE FOR GFR 0.74 MG/DL (0.55-1.30); GLOMERULAR FILTRATION RATE > 60.0 (>32); GLUCOSE, FASTING 100 MG/DL (70-100); POTASSIUM SERUM 3.6 MEQ/L (3.5-5.1); SODIUM LEVEL 140 MEQ/L (136-145); TOTAL PROTEIN 5.6 GM/DL (6.4-8.2)
[2019-06-07] MEDS: ACETAMINOPHEN TAB 650MG DOSE (2X325MG) PO PRN (06:45)
[2019-06-07] MEDS: GABAPENTIN 100 MG CAP PO SCH (08:07)
[2019-06-07] MEDS: PANTOPRAZOLE 40MG INJ (PROTONIX) (C9113) IV SCH (08:07)
[2019-06-07] MEDS: SERTRALINE HCL 50 MG TAB PO SCH (08:07)
[2019-06-07] MEDS: OCUVITE 1 TAB PO SCH (08:07)
[2019-06-07] MEDS ORDERED: PANT20TA2 PO (09:26)
--- NOTE | 2019-06-07 18:30 | DS.PDOC ---
Discharge Summary General Date of Admission Jun 03, 2019 at 01:39 Date of Discharge 06/07/19 Primary Care Physician: Aidan Lynne MD [facility] Attending Physician: Dorina Victor MD Specialist/Consultants Involve: FIDE LAI MD Discharge Summary HISTORY OF PRESENT ILLNESS: Patient is a 88-year-old female presents to [facility] emergency department with complaint of bright red blood per rectum. She states she had an episode of bloody stool approximately 2 months ago, however, did not tell anyone, including her primary care physician. Patient is an overall poor historian. At around 2345 on 06/02/2019 she went to use the bathroom and noticed that the toilet bowl was filled with bright red blood. Since that time she has had an additional 2 more episodes of bloody stool which is filled the toilet bowl. She denies any abdominal pain. She denies any nausea or vomiting. Of note, the patient had been diagnosed with colon cancer and states that she had a partial colectomy and reanastomosis. She denies ever receiving chemotherapy or radiation therapy. She states she does not follow with oncologist. She currently denies any shortness of breath, chest pain, lightheadedness, or palpitations. She states that she does have "pain all over her bones" for which she was recently started on prednisone by her primary care physician for. In the emergency room the patient was vitally stable. She received a CBC and BMP was demonstrated, hemoglobin 9.8, hematocrit of 29.6. Hospitalist service was consulted and patient was admitted for further evaluation and management. HOSPITAL COURSE: REVIEW OF SYSTEMS: CONSTITUTIONAL: Denies unexplained weight gain or weight loss, loss of appetite, fever, night sweats EYES: Denies eye drainage, eye pain, visual changes, dry/irritated eye EARS, NOSE, MOUTH, THROAT: Denies difficulty hearing, ringing in ears, mouth sores, loose teeth, sore throat, facial numbness or pain NECK: Denies swollen glands CARDIOVASCULAR: Denies irregular heartbeat, racing heart, chest pains, swelling of feet or legs, pain in legs with walking RESPIRATORY: Denies night sweats, wheezing, sputum production, oxygen at home, coughing up blood, cough lasting > 1 month GASTROINTESTINAL: Denies abdominal pain, constipation, bloody stool, diarrhea, heartburn, nausea, vomiting GENITOURINARY: Denies painful urination, bloody urine, frequent urination, urgency, leaking urine, impotence MUSCULOSKELETAL: Denies joint pain, muscle pain, leg swelling INTEGUMENTARY: Denies rash, itching, new skin lesion, change in existing skin lesion, hair loss or increase, breast changes. NEUROLOGICAL: Denies headaches, dizziness, difficulty walking, numbness or tingling PSYCHIATRIC: Denies depression, anxiety, recurrent bad thoughts, mood swings, hallucinations PAST MEDICAL HISTORY: 1. History of colon cancer. 2. Coronary artery disease status post quadruple bypass surgery 3. Iron deficiency anemia 4. Hypertension 5. Open angle glaucoma 6. Depression\\anxiety 7. Chronic pain PAST SURGICAL HISTORY: 1. Partial colectomy with reanastomosis. 2. Colonoscopy. 3. Cholecystectomy 4. Hysterectomy 5. Right total knee replacement 6. Tonsillectomy SOCIAL HISTORY: Patient lives at [facility] assisted living in [place]. 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 .She is a former smoker. She started smoking at the age of 22 and quit in 2004. She smoked approximately 3 packs per day and her most. She takes alcohol occasionally. She denies any history of IV or illicit drug use FAMILY HISTORY: Patient's mother and father both . She has 5 daughters, all of whom are alive and well ALLERGIES: Please see below. DISCHARGE MEDICATIONS: Please see below. PHYSICAL EXAMINATION: CONSTITUTIONAL: No acute distress, resting comfortably, AAO x 3 EYES: PERRLA, EOM intact HENT, MOUTH: Normocephalic, atraumatic, moist mucous membranes, NECK: SUPPLE, no JVD, no lymphadenopathy, no carotid bruit CV: Regular rate and rhythm, S1S2 normal, no murmurs/rubs/gallops RESPIRATORY: Clear to auscultation bilaterally, no rales/rhonchi/wheezes GI: OBESE ABDOMEN, BS positive in 4 quadrants, soft, nontender, nondistended, no rebound or guarding, no organomegaly : Deferred MUSCULOSKELETAL: Normal ROM. No cyanosis, clubbing, swelling, joint deformity, extremity edema INTEGUMENTARY: Intact, no rashes, no lesions, no erythema NEUROLOGIC: Cranial Nerves II-XII are intact, no focal deficits PSYCHIATRIC: Mood and affect are normal LABORATORY DATA: Please see below IMAGING: ASSESSMENT: PLAN: 1. 2. 3. 4. 5. 6. 7. 8. 9. 10. DISPOSITION: TIME SPENT ON DISCHARGE: Greater than minutes. TIME SPENT ON DISCHARGE: Greater than minutes. Vital Signs/I&Os Vital Signs Date Time Temp Pulse Resp B/P (MAP) Pulse Ox O2 Delivery O2 Flow Rate FiO2 06/07/19 06:00 98.9 90 17 148/76 (100) 97 Room Air I&O- Last 24 Hours up to 6 AM 06/07/19 06:00 Intake Total 400 ml Output Total 0 ml Balance 400 ml Laboratory Data Labs 24H Laboratory Tests 2 06/07/19 05:46: Immature Granulocyte % (Auto) 0.4, Neutrophils (%) (Auto) 65.3, Lymphocytes (%) (Auto) 21.9L, Monocytes (%) (Auto) 10.1H, Eosinophils (%) (Auto) 2.1, Basophils (%) (Auto) 0.2, Neutrophils # (Auto) 8.3, Lymphocytes # (Auto) 2.8, Monocytes # (Auto) 1.3H, Eosinophils # (Auto) 0.3, Basophils # (Auto) 0.0, Nucleated Red Blood Cells % (auto) 0.0, Anion Gap 5L, Glomerular Filtration Rate > 60.0, Calcium Level 7.8L, Total Bilirubin 0.6, Aspartate Amino Transf (AST/SGOT) 12, Alanine Aminotransferase (ALT/SGPT) 17, Alkaline Phosphatase 66, Total Protein 5.6L, Albumin 2.6L, Albumin/Globulin Ratio 0.87L CBC/BMP Laboratory Tests 06/07/19 05:46 Discharge Medications Scheduled Atorvastatin Calcium (Atorvastatin Calcium) 40 Mg Tablet, 40 MG PO QHS, (Reported) Calcium Polycarbophil (Fibercon) 625 Mg Tablet, 625 MG PO BID, (Reported) Carvedilol (Carvedilol) 3.125 Mg Tablet, 3.125 MG PO BID, (Reported) Cholecalciferol (Vitamin D3) (Vitamin D3) 125 Mcg Capsule, 125 MCG PO DAILY, (Reported) Cyanocobalamin (Vitamin B-12) (Vitamin B-12) 1,000 Mcg Tablet, 1,000 MCG PO DAILY, (Reported) Ferrous Gluconate (Ferrous Gluconate) 324 Mg Tablet, 324 MG PO Q2D, (Reported) EVERY OTHER MORNING Gabapentin (Gabapentin) 100 Mg Capsule, 100 MG PO TID, (Reported) Isosorbide Mononitrate (Isosorbide Mononitrate ER) 30 Mg Tab.er.24h, 30 MG PO DAILY, (Reported) Latanoprost (Xalatan) 0.005% 2.5ML Drops, 1 DROP OU QHS, (Reported) Lidocaine (Lidocaine) 120 Gm Oint...g., 1 DOSE EXT QHS, (Reported) APPLIES TO RIGHT HAND AND WRIST Multivitamin (Tab-A-Sully) 1 Each Tablet, 1 TAB PO DAILY, (Reported) Mv-Min/FA/Vit K/Lycop/Lut/Zeax (Ocuvite Eye Plus Multi Tablet) 1 Each Tablet, 1 TAB PO DAILY, (Reported) Pantoprazole Sodium (Pantoprazole Sodium) 20 Mg Tablet.dr, 20 MG PO DAILY Sertraline HCl (Sertraline HCl) 50 Mg Tablet, 50 MG PO DAILY, (Reported) Scheduled PRN Acetaminophen (Tylenol 8 Hour) 650 Mg Tablet.er, 650 MG PO TID PRN for PAIN, (Reported) Hyoscyamine Sulfate (Hyoscyamine Sulfate) 0.125 Mg Tab.subl, 0.125 MG PO QID PRN for ABDOMINAL PAIN, (Reported) Loperamide HCl (Anti-Diarrheal) 2 Mg Tablet, 2 MG PO ASDIRECTED PRN for DIARRHEA, (Reported) TWO TABLETS AFTER FIRST LOOSE STOOL, THEN 1 TABLET THEREAFTER NEEDED Ondansetron HCl (Ondansetron HCl) 4 Mg Tablet, 4 MG PO TID PRN for NAUSEA, (Reported) Allergies Coded Allergies: Aminoglycosides (Verified Allergy, Unknown, 06/03/19) SWELLING bacitracin (Verified Allergy, Unknown, 06/03/19) SWELLING enalapril (Verified Allergy, Unknown, 06/03/19) SWELLING lisinopril (Verified Allergy, Unknown, 06/03/19) SWELLING meloxicam (Verified Allergy, Unknown, 06/03/19) HALLUCINATIONS neomycin (Verified Allergy, Unknown, 06/03/19) SWELLING polymyxin B (Verified Allergy, Unknown, 06/03/19) SWELLING simvastatin (Verified Allergy, Unknown, 06/03/19) SWELLING terbinafine (Verified Allergy, Unknown, 06/03/19) SWELLING Dorina Victor MD Jun 07, 2019 18:30
== END 2019-06-07 11:57 | DRG 378 ==
LOC: M ED 01:06 → M ED INP 01:39 → ENRESERVDT 02:44 → ENRESERVTM 02:44 → M MSPAV 03:30
PROVIDERS: ADMIT Internal Medicine; ATTEND Internal Medicine
PROC: 30233N1 Transfusion of Nonautologous Red Blood Cells into Peripheral Vein, Percutaneous Approach (ICD-10-PCS; 2019-06-03)
PROC: 0W3P8ZZ Control Bleeding in Gastrointestinal Tract, Via Natural or Artificial Opening Endoscopic (ICD-10-PCS; 2019-06-04)
PROC: 0W3P8ZZ Control Bleeding in Gastrointestinal Tract, Via Natural or Artificial Opening Endoscopic (ICD-10-PCS; principal; 2019-06-04 08:30)
DX: K92.2 Gastrointestinal hemorrhage, unspecified (principal); K63.3 Ulcer of intestine; D62 Acute posthemorrhagic anemia; I25.10 Atherosclerotic heart disease of native coronary artery without angina pectoris; Z85.030 Personal history of malignant carcinoid tumor of large intestine; Z79.899 Other long term (current) drug therapy; Z88.8 Allergy status to other drugs, medicaments and biological substances; Z95.1 Presence of aortocoronary bypass graft; I10 Essential (primary) hypertension; F41.9 Anxiety disorder, unspecified; F32.9 Major depressive disorder, single episode, unspecified; Z96.651 Presence of right artificial knee joint; Z87.891 Personal history of nicotine dependence; G89.29 Other chronic pain; K57.30 Diverticulosis of large intestine without perforation or abscess without bleeding; K64.8 Other hemorrhoids

== ENCOUNTER 2019-06-12 19:41 | Observation (INO) | payer MEDICARE, MEDICAID ==
[~2019-06-12] VITALS: Ht 157.5 cm; Wt 69.8 kg
[~2019-06-12 19:41] MED LIST: ANTI2TAB17 PO; ASPI1CHW3 PO; ATOR40TA75 PO; CARV3.12 PO; CYAN100050 PO; D-50CAP PO; FERR325T16 PO; FIBE625T PO; GABA-1171 PO; HYOS125TA PO; ISOS30TA4 PO; LIDO5OIN19 EXT; OCUVTAB8 PO; ONDA-83 PO; PANT20TA2 PO; PRED20TA PO; SERT50TA29 PO; TAB-TAB PO; TYLE650T38 PO; XALA0.007 OU
[2019-06-12] MEDS ORDERED: NS 500 ML IV ONE (20:00)
[2019-06-12] MEDS ORDERED: MORPHINE 4 MG/ML 1ML VIAL/SYRINGE (J2270) IV ONE (20:00)
[2019-06-12 20:26] LABS: BASO % 0.1 % (0.0-1.0); HEMATOCRIT 28.6 % (36.0-47.0); HEMOGLOBIN 9.4 g/dl (12.0-15.5); LYMPH # 1.6 10^3/uL (1.5-5.0); LYMPH % 15.6 % (24.0-44.0); MEAN CORPUSCULAR HGB CONC 32.9 g/dl (32.0-36.5); MEAN CORPUSCULAR VOLUME 91.4 fl (80.0-96.0); MONO # 0.5 10^3/uL (0.0-0.8); NEUTROPHILS # 8.3 10^3/uL (1.5-8.5); NEUTROPHILS % 78.8 % (36.0-66.0); PLATELET COUNT, AUTOMATED 279 10^3/uL (150-450); RED BLOOD COUNT 3.13 10^6/uL (4.00-5.40); WHITE BLOOD COUNT 10.5 10^3/uL (4.0-10.0)
[2019-06-12] MEDS ORDERED: ENSULIQ19 PO (20:30)
[2019-06-12] MEDS ORDERED: fentaNYL 100 MCG/2 ML INJECTION (J3010) IV ONE (20:30)
[2019-06-12] MEDS ORDERED: PANT20TA51 PO (20:30)
[2019-06-12 20:36] LABS: INR 1.11; PROTHROMBIN TIME 14.1 SECONDS (11.8-14.0)
[2019-06-12 20:37] LABS: PARTIAL THROMBOPLASTIN TIME 26.4 SECONDS (25.0-38.4)
[2019-06-12 20:50] LABS: ALBUMIN 2.8 GM/DL (3.2-5.2); ALT/SGPT 19 U/L (12-78); BILIRUBIN,DIRECT 0.2 MG/DL (0.0-0.2); BILIRUBIN,TOTAL 0.3 MG/DL (0.2-1.0); BLOOD UREA NITROGEN 17 MG/DL (7-18); CALCIUM LEVEL 8.4 MG/DL (8.8-10.2); CARBON DIOXIDE LEVEL 29 MEQ/L (21-32); CHLORIDE LEVEL 104 MEQ/L (98-107); CREATININE FOR GFR 0.74 MG/DL (0.55-1.30); GLOMERULAR FILTRATION RATE > 60.0 (>32); GLUCOSE, FASTING 155 MG/DL (70-100); LIPASE 126 U/L (73-393); POTASSIUM SERUM 3.6 MEQ/L (3.5-5.1); SODIUM LEVEL 138 MEQ/L (136-145); TOTAL PROTEIN 6.1 GM/DL (6.4-8.2)
[2019-06-12] MEDS ORDERED: ISOVUE-370 76% 100ML VIAL (Q9967) As Ordered ONE (21:13)
--- NOTE | 2019-06-12 22:13 | REPVR ---
PROCEDURE INFORMATION: Exam: CT Abdomen And Pelvis With Contrast Exam date and time: 06/12/2019 9:23 PM Age: 88 years old Clinical indication: Abdominal pain; Additional info: Rlq pain TECHNIQUE: Imaging protocol: Computed tomography of the abdomen and pelvis with intravenous contrast. Radiation optimization: All CT scans at this facility use at least one of these dose optimization techniques: automated exposure control; mA and/or kV adjustment per patient size (includes targeted exams where dose is matched to clinical indication); or iterative reconstruction. Contrast material: ISO 370; Contrast volume: 80 ml; Contrast route: IV; COMPARISON: PT PET/CT Skull/mid thigh 04/07/2017 2:16 PM FINDINGS: Heart: Cardiomegaly. Liver: Normal. No mass. Gallbladder and bile ducts: Cholecystectomy clips. Pancreas: Normal. No ductal dilation. Spleen: Normal. No splenomegaly. Adrenals: Normal. No mass. Kidneys and ureters: Normal. No hydronephrosis. Stomach and bowel: Diverticulosis of the sigmoid colon. Evidence of prior ascending colon and transverse colon colectomy. Appendix: No evidence of appendicitis. Intraperitoneal space: Unremarkable. No free air. No significant fluid collection. Vasculature: Abdominal aortic aneurysm measuring 3.5 cm in the infrarenal region. There is a 2nd aneurysm before the bifurcation of the abdominal aorta into the iliac vessels measuring 2.9 cm. Coronary vasculature calcifications. The the atherosclerotic calcification of the abdominal aorta and bilateral iliac. Lymph nodes: Unremarkable. No enlarged lymph nodes. Bladder: Unremarkable as visualized. Reproductive: Unremarkable as visualized. Bones/joints: Unremarkable. No acute fracture. Soft tissues: Lipoma in the anterior left thigh measuring 5.5 x 3 cm. Anterior abdominal wall midline hernia containing fat and part of small bowel without evidence for obstruction. IMPRESSION: No acute abdominal or pelvic abnormality. Abdominal aortic aneurysm as described above. Electronically signed by: David Nava On 06/12/2019 22:13:22 PM
[2019-06-12 22:48] LABS: APPEARANCE, URINE CLEAR (CLEAR); BACTERIA, URINE AUTO NEGATIVE (NEGATIVE); BILIRUBIN, URINE AUTO NEGATIVE (NEGATIVE); BLOOD, URINE BLOOD NEGATIVE (NEGATIVE); COLOR, URINE YELLOW (YELLOW); GLUCOSE, URINE (UA) AUTO NEGATIVE (NEGATIVE); KETONE, URINE AUTO NEGATIVE (NEGATIVE); LEUKOCYTE ESTERASE, URINE AUTO NEGATIVE (NEGATIVE); MUCUS, URINE SMALL (NEGATIVE); NITRITE, URINE AUTO NEGATIVE (NEGATIVE); PROTEIN, URINE AUTO NEGATIVE (NEGATIVE); RBC, URINE AUTO 2 /HPF (0-3); SPECIFIC GRAVITY URINE AUTO 1.038 (1.002-1.035); SQUAMOUS EPITHELIAL CELL UR AU 2 /HPF (0-6); UROBILINOGEN, URINE AUTO 0.2 mg/dL (0.0-2.0); WBC, URINE AUTO 0 /HPF (0-3)
[2019-06-12] MEDS ORDERED: MOM 30ML SUSPENSION UDC PO PRN (23:30)
[2019-06-12] MEDS ORDERED: ACETAMINOPHEN TAB 650MG DOSE (2X325MG) PO PRN (23:30)
[2019-06-12] MEDS ORDERED: KETOROLAC TROMETHAMINE 10 MG TAB PO PRN (23:30)
--- NOTE | 2019-06-12 23:32 | HPEPDOC ---
[facility] Medical History & Physical Date of Admission Jun 13, 2019 Date of Service: Jun 13, 2019 Primary Care Physician: Aidan Lynne Attending Physician: VAN ORLANDO MD History and Physical TIME OF SERVICE: 12:30 AM CHIEF COMPLAINT: Abdominal pain HISTORY OF PRESENT ILLNESS: This is an 88-year-old female presents with complaints of 10 out of 10 in severity, nonradiating right lower quadrant abdominal pain for several days. She was sent to the hospital by snf staff because she "she was crying all afternoon." She thinks the pain may be aggravated by food. The pain did improve after she received pain meds in the ER. She denies having nausea, vomiting, diarrhea or constipation. REVIEW OF SYSTEMS: 12 point review of systems negative except as listed in HPI PAST MEDICAL/ SURGICAL HISTORY: Chronic CAD/CABG/dyslipidemia Iron deficiency anemia Chronic hypertension. Open angle glaucoma Colectomy for small bowel obstruction with bleed at anastomosis site Partial colectomy for colon cancer Cholecystectomy Hysterectomy Tonsillectomy Right total knee replacement SOCIAL HISTORY: Former smoker Takes alcohol occasionally Does not use recreational drugs Resides at [facility] ALLERGIES: Please see below. HOME MEDICATIONS: Please see below. PHYSICAL EXAMINATION: Vital Signs Date Time Temp Pulse Resp B/P (MAP) Pulse Ox O2 Delivery O2 Flow Rate FiO2 06/12/19 19:58 96.6 72 20 178/80 (112) 98 Room Air GEN: well-nourished / well developed/ NAD CVS: RRR/NMRG/ radial intact INTEGUMENT: Multiple old well-healed flat keloid postsurgical scars on abdomen LUNGS: able to speak full sentences without stopping to take a breath / lungs are clear to auscultation bilaterally on room air ABDOMEN: Contour ( obese) / guarding and grimacing with percussion of the abdomen MSK/EXTREMITIES: range of motion intact in all 4 extremities NEURO: CN 2-12 are grossly intact / speech is not dysarthric PSYCH: alert and oriented / able to understand and follow all commands LABORATORY DATA: Immature Granulocyte % (Auto) 0.5, Neutrophils (%) (Auto) 78.8H, Lymphocytes (%) (Auto) 15.6L, Monocytes (%) (Auto) 5.0, Eosinophils (%) (Auto) 0.0, Basophils (%) (Auto) 0.1, Neutrophils # (Auto) 8.3, Lymphocytes # (Auto) 1.6, Monocytes # (Auto) 0.5, Eosinophils # (Auto) 0.0, Basophils # (Auto) 0.0, Nucleated Red Blood Cells % (auto) 0.0, Prothrombin Time 14.1H, Prothromb Time International Ratio 1.11, Activated Partial Thromboplast Time 26.4, Anion Gap 5L, Glomerular Filtration Rate > 60.0, Lactic Acid Level 1.8, Calcium Level 8.4L, Total Bilirubin 0.3, Direct Bilirubin 0.2, Aspartate Amino Transf (AST/SGOT) 14, Alanine Aminotransferase (ALT/SGPT) 19, Alkaline Phosphatase 76, Total Protein 6.1L, Albumin 2.8L, Albumin/Globulin Ratio 0.85L, Lipase 126 06/12/19 22:33: Urine Color YELLOW, Urine Appearance CLEAR, Urine pH 6.0, Urine Specific [place] 1.038, Urine Protein NEGATIVE, Urine Glucose (Auto)(UA) NEGATIVE, Urine Ketones (Auto) NEGATIVE, Urine Blood NEGATIVE, Urine Nitrite NEGATIVE, Urine Bilirubin NEGATIVE, Urine Urobilinogen 0.2, Urine Leukocyte Esterase (Auto) NEGATIVE, Urine WBC (Auto) 0, Urine RBC (Auto) 2, Urine Hyaline Casts (Auto) 0, Urine Bacteria (Auto) NEGATIVE, Urine Squamous Epithelial Cells 2, Urine Mucus (Auto) SMALL, Urine Sperm (Auto) IMAGING: CT abdomen and pelvis "IMPRESSION: No acute abdominal or pelvic abnormality. Abdominal aortic aneurysm as described above." ASSESSMENT: Ms. Leiva is an 88-year-old with a history of chronic CAD, CABG, dyslipidemia, GRIS, HTN, and multiple abdominal surgeries, who is admitted for observation because of severe abdominal pain whose causes to be determined. PLAN: 1. Abdominal pain. Cause to be determined. Possibly due to adhesions versus other such as secondary gain ? Her vitals, the blood work including lipase and WBC count, the UA and CT of the abdomen and pelvis were unrevealing. Plan: Admit to medical floor/clear liquid diet/naproxen and Tylenol for pain/if her pain is still severe, the daytime team may consider a surgical consult to determine if the pain may be due to adhesions / hold calcium, iron, and multivitamins which can cause constipation, especially in the elderly 2. Mild Leukocytosis - monitor vitals and CBC in AM 3. GRIS. Hg slight below baseline - f/u CBC 4. Chronic CAD/CABG/dyslipidemia - atorvastatin, carvedilol 3. Chronic hypertension - carvedilol DVT PROPHYLAXIS: SCDs DISPOSITION: Will likely need less than 2 midnight stay / PFS consult has been placed for assistance with transfer back to [facility] Home Medications Scheduled Atorvastatin Calcium (Atorvastatin Calcium) 40 Mg Tablet, 40 MG PO QHS Calcium Polycarbophil (Fibercon) 625 Mg Tablet, 625 MG PO BID TAKES 0800 AND 1200 Carvedilol (Carvedilol) 3.125 Mg Tablet, 3.125 MG PO BID Cholecalciferol (Vitamin D3) (Vitamin D3) 125 Mcg Capsule, 125 MCG PO DAILY Cyanocobalamin (Vitamin B-12) (Vitamin B-12) 1,000 Mcg Tablet, 1,000 MCG PO DAILY Ferrous Gluconate (Ferrous Gluconate) 324 Mg Tablet, 324 MG PO Q2D EVERY OTHER MORNING Gabapentin (Gabapentin) 100 Mg Capsule, 100 MG PO TID Isosorbide Mononitrate (Isosorbide Mononitrate ER) 30 Mg Tab.er.24h, 30 MG PO DAILY Latanoprost (Xalatan) 0.005% 2.5ML Drops, 1 DROP OU QHS Lidocaine (Lidocaine) 120 Gm Oint...g., 1 DOSE EXT QHS APPLIES TO RIGHT HAND AND WRIST Multivitamin (Tab-A-Sully) 1 Each Tablet, 1 TAB PO DAILY Mv-Min/FA/Vit K/Lycop/Lut/Zeax (Ocuvite Eye Plus Multi Tablet) 1 Each Tablet, 1 TAB PO DAILY Pantoprazole Sodium (Pantoprazole Sodium) 20 Mg Tablet.dr, 20 MG PO DAILY Sertraline HCl (Sertraline HCl) 50 Mg Tablet, 50 MG PO DAILY Scheduled PRN Acetaminophen (Tylenol 8 Hour) 650 Mg Tablet.er, 650 MG PO TID PRN for PAIN Hyoscyamine Sulfate (Hyoscyamine Sulfate) 0.125 Mg Tab.subl, 0.125 MG PO QID PRN for ABDOMINAL PAIN Lactose-Reduced Food (Ensure Original) 237 Ml Liquid, 237 ML PO DAILY PRN for SUPPLEMENT PER PATIENT REQUEST Loperamide HCl (Anti-Diarrheal) 2 Mg Tablet, 2 MG PO ASDIRECTED PRN for DIARRHEA TWO TABLETS AFTER FIRST LOOSE STOOL, THEN 1 TABLET THEREAFTER NEEDED Ondansetron HCl (Ondansetron HCl) 4 Mg Tablet, 4 MG PO TID PRN for NAUSEA Allergies Coded Allergies: morphine (Verified Allergy, Severe, psychosis, 06/12/19) Aminoglycosides (Verified Allergy, Unknown, SWELLING, 06/12/19) SWELLING bacitracin (Verified Allergy, Unknown, SWELLING, 06/12/19) SWELLING enalapril (Verified Allergy, Unknown, SWELLING, 06/12/19) SWELLING lisinopril (Verified Allergy, Unknown, SWELLING, 06/12/19) SWELLING meloxicam (Verified Allergy, Unknown, HALLUCINATIONS, 06/12/19) HALLUCINATIONS neomycin (Verified Allergy, Unknown, SWELLING, 06/12/19) SWELLING polymyxin B (Verified Allergy, Unknown, SWELLING, 06/12/19) SWELLING simvastatin (Verified Allergy, Unknown, SWELLING, 06/12/19) SWELLING terbinafine (Verified Allergy, Unknown, SWELLING, 06/12/19) SWELLING A-FIB/CHADSVASC A-FIB History Current/History of A-Fib/PAF?: No Current PO Anticoag Therapy: No VAN ORLANDO MD Jun 12, 2019 23:32
[2019-06-13 00:15] VITALS: BP 180/82
[2019-06-13] MEDS ORDERED: LOPERAMIDE 2 MG CAPLET PO PRN (02:30)
[2019-06-13] MEDS ORDERED: HYOSCYAMINE SULFATE 0.125 MG SUBL TABLET PO PRN (02:30)
[2019-06-13] MEDS ORDERED: ONDANSETRON 4 MG TAB (S0181) PO PRN (02:30)
[2019-06-13] MEDS: GABAPENTIN 100 MG CAP PO SCH ×4 (02:44→20:30)
[2019-06-13] MEDS: LIDOCAINE 5% OINT 30 GM EXT SCH ×2 (02:44→20:31)
[2019-06-13] MEDS: LATANOPROST 0.005% OPHTH SOLN 2.5 ML OU SCH ×2 (02:44→20:31)
[2019-06-13] MEDS: ATORVASTATIN 20 MG TAB PO SCH ×2 (02:44→20:30)
[2019-06-13 02:45] VITALS: BP 168/75
[2019-06-13] MEDS: CARVedilol 3.125 MG TAB PO SCH ×3 (02:45→20:30)
[2019-06-13 06:19] VITALS: BP 151/71
[2019-06-13 07:25] LABS: HEMOGLOBIN 9.7 g/dl (12.0-15.5); MEAN CORPUSCULAR HEMOGLOBIN 30.5 pg (27.0-33.0); MEAN CORPUSCULAR HGB CONC 33.4 g/dl (32.0-36.5); MEAN CORPUSCULAR VOLUME 91.2 fl (80.0-96.0); PLATELET COUNT, AUTOMATED 255 10^3/uL (150-450); RED BLOOD COUNT 3.18 10^6/uL (4.00-5.40); WHITE BLOOD COUNT 10.7 10^3/uL (4.0-10.0)
[2019-06-13 07:55] LABS: BLOOD UREA NITROGEN 9 MG/DL (7-18); CALCIUM LEVEL 8.3 MG/DL (8.8-10.2); CARBON DIOXIDE LEVEL 29 MEQ/L (21-32); CHLORIDE LEVEL 104 MEQ/L (98-107); CREATININE FOR GFR 0.61 MG/DL (0.55-1.30); GLOMERULAR FILTRATION RATE > 60.0 (>32); GLUCOSE, FASTING 90 MG/DL (70-100); POTASSIUM SERUM 3.5 MEQ/L (3.5-5.1); SODIUM LEVEL 142 MEQ/L (136-145)
[2019-06-13] MEDS: ENOXAPARIN 40MG/0.4ML SYRINGE (J1650 PER 10MG) SC SCH (09:00)
[2019-06-13] MEDS: SERTRALINE HCL 50 MG TAB PO SCH (09:03)
[2019-06-13] MEDS: ISOSORBIDE MON. (IMDUR) 30 MG XR TAB PO SCH (09:03)
[2019-06-13] MEDS: DOCUSATE SODIUM 100 MG CAP PO SCH ×2 (09:03→20:29)
[2019-06-13] MEDS: PANTOPRAZOLE 20 MG TAB PO SCH (09:03)
[2019-06-13 14:00] VITALS: BP 122/59
--- NOTE | 2019-06-13 16:22 | IPNPDOC ---
Text Note Date of Service The patient was seen on 06/13/19. NOTE S: Pt examined at bedside. Reports her pain is continuing into the morning, unchanged from admission. Denies any nausea or vomiting or any bowel movements or blood loss. No chest pain or shortness of breath. Otherwise hemodynamically stable. PE: Vitals: see below General: NAD, A&Ox3, resting comfortably HEENT: NCAT, EOMI, anicteric sclera, MMM CV: RRR, no murmurs or clicks or rub. No edema RESP: CTAB, no w/r/r/ ABD: soft, ND. No r/g/r. Tender to palpation mostly in left EXTREMITIES: able to move all extremities NEURO: no focal deficits or acute changes A/P: This is a 88-year-old female with a hx of SBO from colon cancer, s/p colect essence 2012 & 2018, & recent lower GI bleed at site of anastomosis requiring 2U PRBC. She now presents for acute on chronic abdominal pain that she has had the past 2 years, but reports it's been worsening over the past couple of days. No other associated symptoms. Imaging on admission negative and labs unremarkable. 1. Acute on chronic abd pain - continues to have same level of abd pain since admission - no signs of systemic infection; hemodynamically stable; GI panel negative - CT abd on admission: No acute abdominal or pelvic abnormality.Abdominal aortic aneurysm as described above. - recent colonoscopies x2 with Dr. Ybarra for hematochezia 06/04/19: Patent ileo- colonic anastomosis,with a small hemorrhagic appearing mucosal ulceration. Clips were placed - may be 2/2 recent clips irritating mucosa vs spasm of chronic diarrhea vs diet-related - Bowel & pain meds on board. - Will advance diet and monitor. DLD/CAD/CABG -continue statin & BBlocker HTN -stable -continue current regimen Iron defic anema -H&H stable. Continue home po supplement -no overt bleed GERD -continue home ppi Depression - stable. COntinue home SSRI DVT ppx: Lovenox sc DISPO: pending clinical improvement. Likely d/c home 24-48 hrs VS,Fishbone, I+O VS, Fishbone, I+O Laboratory Tests 06/12/19 20:20 06/13/19 07:10 Vital Signs Date Time Temp Pulse Resp B/P (MAP) Pulse Ox O2 Delivery O2 Flow Rate FiO2 06/13/19 14:00 97.9 63 16 122/59 (80) 94 Room Air I&O- Last 24 Hours up to 6 AM 06/13/19 06:00 Intake Total 600 ml Output Total 450 ml Balance 150 ml GME ATTESTATION GME ATTESTATION My faculty preceptor for this patient encounter was physically present during the encounter and was fully available. All aspects of the patient interview, examination, medical decision making process, and medical care plan development were reviewed and approved by the faculty preceptor. The faculty preceptor is aware and concurs with the plan as stated in the body of this note and will attest to such by his/her cosignature. ATTENDING NOTE I, Dottie Lambert, have independently examined this patient and performed my own physical exam, as well as reviewed the documentation and edited where necessary. I have discussed in detail with the resident / student the findings and plan of treatment as documented by the resident / student and edited their note. I agree with their findings and treatment plan and have edited their documentation. I will continue to follow the patient during this hospital stay. YANA GARCIA DO Jun 13, 2019 16:22 DOTTIE LAMBERT MD Jun 13, 2019 16:27
[2019-06-13 22:00] VITALS: BP 123/58
[2019-06-14 05:54] VITALS: BP 135/64
[2019-06-14 08:21] LABS: HEMATOCRIT 30.4 % (36.0-47.0); HEMOGLOBIN 9.8 g/dl (12.0-15.5); MEAN CORPUSCULAR HEMOGLOBIN 30.2 pg (27.0-33.0); MEAN CORPUSCULAR HGB CONC 32.2 g/dl (32.0-36.5); MEAN CORPUSCULAR VOLUME 93.5 fl (80.0-96.0); PLATELET COUNT, AUTOMATED 269 10^3/uL (150-450); RED BLOOD COUNT 3.25 10^6/uL (4.00-5.40); WHITE BLOOD COUNT 12.3 10^3/uL (4.0-10.0)
[2019-06-14 08:22] VITALS: BP 135/64
[2019-06-14] MEDS: GABAPENTIN 100 MG CAP PO SCH (08:22)
[2019-06-14] MEDS: PANTOPRAZOLE 20 MG TAB PO SCH (08:22)
[2019-06-14] MEDS: CARVedilol 3.125 MG TAB PO SCH (08:22)
[2019-06-14] MEDS: ISOSORBIDE MON. (IMDUR) 30 MG XR TAB PO SCH (08:22)
[2019-06-14] MEDS: SERTRALINE HCL 50 MG TAB PO SCH (08:22)
[2019-06-14] MEDS: ENOXAPARIN 40MG/0.4ML SYRINGE (J1650 PER 10MG) SC SCH (09:00)
[2019-06-14] MEDS: DOCUSATE SODIUM 100 MG CAP PO SCH (09:00)
[2019-06-14 09:06] LABS: BLOOD UREA NITROGEN 9 MG/DL (7-18); CALCIUM LEVEL 8.5 MG/DL (8.8-10.2); CARBON DIOXIDE LEVEL 27 MEQ/L (21-32); CHLORIDE LEVEL 106 MEQ/L (98-107); CREATININE FOR GFR 0.78 MG/DL (0.55-1.30); GLOMERULAR FILTRATION RATE > 60.0 (>32); GLUCOSE, FASTING 104 MG/DL (70-100); POTASSIUM SERUM 3.5 MEQ/L (3.5-5.1); SODIUM LEVEL 141 MEQ/L (136-145)
--- NOTE | 2019-06-14 19:30 | DS.PDOC ---
Discharge Summary General Date of Admission Jun 12, 2019 at 23:27 Date of Discharge 06/14/19 Attending Physician: TOMEKA HANLEY MD Discharge Summary PROCEDURES PERFORMED DURING STAY: [None]. DISCHARGE DIAGNOSES: 1. Acute on chronic abd pain likely 2/2 recent clips irritating mucosa vs spasm of chronic diarrhea vs diet-related 2. DLD/CAD/CABG HTN Iron defic anemia GERD Depression HISTORY OF PRESENT ILLNESS: This is a 88-year-old female with a hx of SBO from colon cancer, s/p colectomy 2012 & 2018, & recent lower GI bleed at site of anastomosis requiring 2U PRBC. She now presents for acute on chronic abdominal pain that she has had the past 2 years, but reports it's been worsening over the past couple of days. No other associated symptoms. Imaging on admission negative and labs unremarkable. HOSPITAL COURSE: . DISCHARGE MEDICATIONS: Please see below. ALLERGIES: Please see below. PHYSICAL EXAMINATION ON DISCHARGE: Vitals: see below General: NAD, A&Ox3, resting comfortably HEENT: NCAT, EOMI, anicteric sclera, MMM, neck supple CV: RRR, no murmurs or clicks or rub. No edema RESP: CTAB, no w/r/r/ ABD: soft, ND. No r/g/r. No longer tender to palpation EXTREMITIES: able to move all extremities NEURO: no focal deficits or acute changes LABORATORY DATA: Please see below. IMAGING: * 06/12/2019 CT abdomen and pelvis: No acute abdominal or pelvic abnormality. Abdominal aortic aneurysm as described above. PROGNOSIS: good ACTIVITY: [As tolerated]. DIET: high fiber DISPOSITION: back to [facility] DISCHARGE INSTRUCTIONS: 1. Follow-up with PCP within a week, GI 1-2 weeks 2. Return to ER for emergency DISCHARGE CONDITION: [Stable]. TIME SPENT ON DISCHARGE: Greater than 35 minutes. Vital Signs/I&Os Vital Signs Date Time Temp Pulse Resp B/P (MAP) Pulse Ox O2 Delivery O2 Flow Rate FiO2 06/14/19 08:22 67 135/64 06/14/19 05:54 99.0 17 93 Room Air I&O- Last 24 Hours up to 6 AM 06/14/19 06:00 Intake Total 2450 ml Output Total 1125 ml Balance 1325 ml Laboratory Data Labs 24H Laboratory Tests 2 06/14/19 08:06: Nucleated Red Blood Cells % (auto) 0.0, Anion Gap 8, Glomerular Filtration Rate > 60.0, Calcium Level 8.5L CBC/BMP Laboratory Tests 06/14/19 08:06 Microbiology Microbiology 06/13/19 Gastrointestinal Tract Panel (PCR) - Final, Complete Discharge Medications Scheduled Atorvastatin Calcium (Atorvastatin Calcium) 40 Mg Tablet, 40 MG PO QHS, (Reported) Calcium Polycarbophil (Fibercon) 625 Mg Tablet, 625 MG PO BID, (Reported) TAKES 0800 AND 1200 Carvedilol (Carvedilol) 3.125 Mg Tablet, 3.125 MG PO BID, (Reported) Cholecalciferol (Vitamin D3) (Vitamin D3) 125 Mcg Capsule, 125 MCG PO DAILY, (Reported) Cyanocobalamin (Vitamin B-12) (Vitamin B-12) 1,000 Mcg Tablet, 1,000 MCG PO LUZ LY, (Reported) Ferrous Gluconate (Ferrous Gluconate) 324 Mg Tablet, 324 MG PO Q2D, (Reported) EVERY OTHER MORNING Gabapentin (Gabapentin) 100 Mg Capsule, 100 MG PO TID, (Reported) Isosorbide Mononitrate (Isosorbide Mononitrate ER) 30 Mg Tab.er.24h, 30 MG PO DAILY, (Reported) Latanoprost (Xalatan) 0.005% 2.5ML Drops, 1 DROP OU QHS, (Reported) Lidocaine (Lidocaine) 120 Gm Oint...g., 1 DOSE EXT QHS, (Reported) APPLIES TO RIGHT HAND AND WRIST Multivitamin (Tab-A-Sully) 1 Each Tablet, 1 TAB PO DAILY, (Reported) Mv-Min/FA/Vit K/Lycop/Lut/Zeax (Ocuvite Eye Plus Multi Tablet) 1 Each Tablet, 1 TAB PO DAILY, (Reported) Pantoprazole Sodium (Pantoprazole Sodium) 20 Mg Tablet.dr, 20 MG PO DAILY, (Reported) Sertraline HCl (Sertraline HCl) 50 Mg Tablet, 50 MG PO DAILY, (Reported) Scheduled PRN Acetaminophen (Tylenol 8 Hour) 650 Mg Tablet.er, 650 MG PO TID PRN for PAIN, (Reported) Hyoscyamine Sulfate (Hyoscyamine Sulfate) 0.125 Mg Tab.subl, 0.125 MG PO QID PRN for ABDOMINAL PAIN, (Reported) Lactose-Reduced Food (Ensure Original) 237 Ml Liquid, 237 ML PO DAILY PRN for SUPPLEMENT, (Reported) PER PATIENT REQUEST Loperamide HCl (Anti-Diarrheal) 2 Mg Tablet, 2 MG PO ASDIRECTED PRN for DIARRHEA, (Reported) TWO TABLETS AFTER FIRST LOOSE STOOL, THEN 1 TABLET THEREAFTER NEEDED Ondansetron HCl (Ondansetron HCl) 4 Mg Tablet, 4 MG PO TID PRN for NAUSEA, (Reported) Allergies Coded Allergies: morphine (Verified Allergy, Severe, psychosis, 06/12/19) Aminoglycosides (Verified Allergy, Unknown, SWELLING, 06/12/19) SWELLING bacitracin (Verified Allergy, Unknown, SWELLING, 06/12/19) SWELLING enalapril (Verified Allergy, Unknown, SWELLING, 06/12/19) SWELLING lisinopril (Verified Allergy, Unknown, SWELLING, 06/12/19) SWELLING meloxicam (Verified Allergy, Unknown, HALLUCINATIONS, 06/12/19) HALLUCINATIONS neomycin (Verified Allergy, Unknown, SWELLING, 06/12/19) SWELLING polymyxin B (Verified Allergy, Unknown, SWELLING, 06/12/19) SWELLING simvastatin (Verified Allergy, Unknown, SWELLING, 06/12/19) SWELLING terbinafine (Verified Allergy, Unknown, SWELLING, 06/12/19) SWELLING GME ATTESTATION GME ATTESTATION My faculty preceptor for this patient encounter was physically present during the encounter and was fully available. All aspects of the patient interview, examination, medical decision making process, and medical care plan development were reviewed and approved by the faculty preceptor. The faculty preceptor is aware and concurs with the plan as stated in the body of this note and will attest to such by his/her cosignature. YANA GARCIA DO Jun 14, 2019 19:30
== END 2019-06-14 12:25 | disposition home or self-care (01) ==
LOC: M ED 19:41 → M ED INP 23:27 → ENRESERVTM 23:40 → ENRESERVDT 23:40 → M MS5PR 06-13 00:06
PROVIDERS: ADMIT Internal Medicine; ATTEND Internal Medicine
DX: R10.31 Right lower quadrant pain (principal); D72.829 Elevated white blood cell count, unspecified; E78.49 Other hyperlipidemia; I25.10 Atherosclerotic heart disease of native coronary artery without angina pectoris; Z95.1 Presence of aortocoronary bypass graft; I10 Essential (primary) hypertension; D50.9 Iron deficiency anemia, unspecified; F32.9 Major depressive disorder, single episode, unspecified; Z79.899 Other long term (current) drug therapy; Z88.5 Allergy status to narcotic agent; Z88.8 Allergy status to other drugs, medicaments and biological substances; Z87.891 Personal history of nicotine dependence; Z85.038 Personal history of other malignant neoplasm of large intestine; Z98.0 Intestinal bypass and anastomosis status
CPT/HCPCS: 36415; 74177; 80048; 80076; 81001; 83605; 83690; 85025; 85027; 85610; 85730; 87507; 96361; 96374; 97161; 99284; G0378; J3010; Q9967

== ENCOUNTER → 2019-08-08 | Outpatient (CLI) | payer MEDICARE, MEDICAID ==
[~2019-08-08] MED LIST changes: +ENSULIQ19 PO; +PANT20TA51 PO
== END ==
LOC: M LABSMTC 11:36
PROVIDERS: ATTEND Anesthesiology
DX: Z03.818 Encounter for observation for suspected exposure to other biological agents ruled out (principal); Z11.59 Encounter for screening for other viral diseases
CPT/HCPCS: C9803; U0003

== ENCOUNTER 2019-08-11 08:29 | Day surgery (SDC) | payer MEDICARE, MEDICAID ==
[~2019-08-11] VITALS: Ht 157.5 cm; Wt 67.5 kg
[~2019-08-11 08:29] MED LIST changes: +NS 1,000 ML IV ONE
[2019-08-11] MEDS ORDERED: LIDOCAINE 2% 100MG/5ML SDV (FOR ANES.) As Ordered ONE (11:49)
[2019-08-11] MEDS ORDERED: propofoL 200 MG/20 ML VIAL As Ordered ONE (11:49)
--- NOTE | 2019-08-11 11:58 | ROOR ---
Patient Name: Mally Leiva Procedure Date: 08/11/2019 11:43 AM Date of : 1930 Age: 88 Room: [facility] Gender: Female Note Status: Finalized Procedure: Upper GI endoscopy Indications: Generalized abdominal pain Providers: Candido LAI MD Referring MD: JODY BELL MD Requesting Provider: Medicines: Monitored Anesthesia Care Complications: No immediate complications. Procedure: Pre-Anesthesia Assessment: - The heart rate, respiratory rate, oxygen saturations, blood pressure, adequacy of pulmonary ventilation, and response to care were monitored throughout the procedure. The Endoscope was introduced through the mouth, and advanced to the second part of duodenum. The upper GI endoscopy was accomplished without difficulty. The patient tolerated the procedure well. Findings: The esophagus was normal. The stomach was normal. The examined duodenum was normal. Impression: - Normal esophagus. - Normal stomach. - Normal examined duodenum. - No specimens collected. Recommendation: - Observe patient's clinical course. - Return to referring physician as previously scheduled. Candido Lai MD Candido LAI MD 08/11/2019 11:57:49 AM Electronically signed by Candido LAI MD Number of Addenda: 0 Note Initiated On: 08/11/2019 11:43 AM Estimated Blood Loss: Estimated blood loss: none.
[2019-08-11 12:20] VITALS: BP 141/77
== END 2019-08-11 12:35 | disposition home or self-care (01) ==
LOC: M OPP 08:29
PROVIDERS: ATTEND Internal Medicine Gastroenterology
DX: R10.84 Generalized abdominal pain (principal); Z79.899 Other long term (current) drug therapy; Z88.5 Allergy status to narcotic agent; Z88.8 Allergy status to other drugs, medicaments and biological substances; Z86.79 Personal history of other diseases of the circulatory system; Z95.5 Presence of coronary angioplasty implant and graft

== ENCOUNTER → 2019-08-16 | Outpatient (CLI) | payer MEDICARE, MEDICAID ==
[~2019-08-16] MED LIST changes: +GASTROGRAFIN SOLUTION 30ML (Q9963) As Ordered ONE; +ISOVUE-370 76% 100ML VIAL As Ordered ONE; -NS 1,000 ML IV ONE
--- NOTE | 2019-08-16 09:54 | REP ---
CT ANGIOGRAPHY OF THE ABDOMEN PELVIS: HISTORY: Vascular disorder of the intestines. Postprandial abdominal pain, a few remaining. Evaluate for intestinal angina. The patient gives a history of cholecystectomy. History for prior PET/CT relates a history of a colon carcinoma. Comparison CT study June 12, 2019. CT CONTRAST DOSE: 100 mL of intravenous Isovue [address] FINDINGS: There is four-chamber cardiomegaly. The left atrium measures 4.9 cm in anteroposterior dimension at the top of the imaging field of view. No pericardial effusion or pleural effusion is seen. The lung bases are essentially clear. There is no evidence of upper abdominal ascites. No focal liver or spleen lesion is seen. The adrenal glands are unremarkable. There is cortical atrophy of the kidneys bilaterally without evidence of hydronephrosis. No mass lesion is seen. No abnormality is noted in the pancreas. The patient is status post right hemicolectomy with an anastomosis in the transverse colon. No colonic mass lesion is seen. There is mild left colonic diverticulosis. No pelvic or retroperitoneal adenopathy or mesenteric adenopathy is seen. There is a broad-based minimal ventral hernia in the epigastrium transmitting abdominal fat. No other abdominal wall defect is seen. There is spray artifact from scattered surgical clips. There is extensive atherosclerotic disease in the aorta and its branches. The proximal abdominal aorta measures 2.5 cm in anteroposterior dimension at the diaphragmatic hiatus. There is a infrarenal abdominal aortic aneurysm, which is somewhat eccentric in shape just below the origin of the renal arteries measuring 3.5 cm anterior to posterior x 4.5 cm right to left. The mid aorta is normal in caliber measuring 1.9 cm in AP dimension at the origin of the inferior mesenteric artery. The pre- bifurcation abdominal aorta is aneurysmal again measuring 3.2 x 3.3 cm in AP x transverse dimension respectively. There is no evidence of aortic rupture or retroperitoneal hematoma. The celiac axis is patent although its origin is heavily calcified and there is a pinpoint stenosis of the celiac axis just beyond its origin on sagittal multiplanar re-formation image. There appears to be mild post stenotic dilation of the celiac axis as well. The splenic artery is heavily calcified. There is extensive calcific plaquing and significant narrowing of the proximal renal artery on the left. There is moderate stenosis of the proximal renal artery origin on the right as well, 60-75%. Given the extensive calcification of the left main renal artery, more prominent stenosis is suggested on the left. This is just above the aneurysmal section of the aorta. 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 The mid SMA shows fairly extensive calcific plaquing. The SMA is not occluded however. The inferior mesenteric artery is patent although it arises from the aorta at a densely calcified plaque. Incidental note is made of mild anterior wedge compression deformity at the T11 vertebral body unchanged from June 12, 2019. 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 Significant bilateral renal artery stenosis suspected as well left greater than right. There are 2 aneurysmally dilated segments of the abdominal aorta one just below the renal artery origins and the other just above the bifurcation of the aorta. Electronically Signed by Keon Van MD 08/16/2019 12:21 P
== END ==
LOC: M RAD 07:42
PROVIDERS: ATTEND Internal Medicine Gastroenterology
DX: K55.1 Chronic vascular disorders of intestine (principal)
CPT/HCPCS: 74174; Q9967

== ENCOUNTER 2019-09-01 09:39 | Emergency (ER) | payer MEDICARE, MEDICAID ==
[~2019-09-01] VITALS: Ht 157.5 cm; Wt 67.1 kg
[~2019-09-01 09:39] MED LIST changes: -GASTROGRAFIN SOLUTION 30ML (Q9963) As Ordered ONE; -ISOVUE-370 76% 100ML VIAL As Ordered ONE
[2019-09-01 10:12] LABS: BASO % 0.2 % (0.0-1.0); EOS # 0.1 10^3/uL (0.0-0.5); EOS % 0.9 % (0.0-3.0); HEMATOCRIT 35.6 % (36.0-47.0); HEMOGLOBIN 11.2 g/dl (12.0-15.5); LYMPH # 3.8 10^3/uL (1.5-5.0); LYMPH % 37.9 % (24.0-44.0); MEAN CORPUSCULAR HEMOGLOBIN 28.2 pg (27.0-33.0); MEAN CORPUSCULAR HGB CONC 31.5 g/dl (32.0-36.5); MEAN CORPUSCULAR VOLUME 89.7 fl (80.0-96.0); MONO # 0.9 10^3/uL (0.0-0.8); MONO % 9.1 % (0.0-5.0); NEUTROPHILS # 5.2 10^3/uL (1.5-8.5); NEUTROPHILS % 51.5 % (36.0-66.0); PLATELET COUNT, AUTOMATED 261 10^3/uL (150-450); RED BLOOD COUNT 3.97 10^6/uL (4.00-5.40); WHITE BLOOD COUNT 10.1 10^3/uL (4.0-10.0)
[2019-09-01 10:22] LABS: INR 1.12; PARTIAL THROMBOPLASTIN TIME 24.7 SECONDS (25.0-38.4); PROTHROMBIN TIME 14.1 SECONDS (11.8-14.0)
[2019-09-01] MEDS ORDERED: PRED10PA PO (10:28)
[2019-09-01 10:38] LABS: ALT/SGPT 17 U/L (12-78); BILIRUBIN,DIRECT 0.2 MG/DL (0.0-0.2); BILIRUBIN,TOTAL 0.4 MG/DL (0.2-1.0); BLOOD UREA NITROGEN 17 MG/DL (7-18); CALCIUM LEVEL 8.8 MG/DL (8.8-10.2); CARBON DIOXIDE LEVEL 30 MEQ/L (21-32); CHLORIDE LEVEL 104 MEQ/L (98-107); CREATININE FOR GFR 0.83 MG/DL (0.55-1.30); GLOMERULAR FILTRATION RATE > 60.0 (>32); GLUCOSE, FASTING 114 MG/DL (70-100); LIPASE 128 U/L (73-393); POTASSIUM SERUM 3.6 MEQ/L (3.5-5.1); SODIUM LEVEL 141 MEQ/L (136-145); TOTAL PROTEIN 6.2 GM/DL (6.4-8.2)
[2019-09-01] MEDS ORDERED: GASTROGRAFIN SOLUTION 30ML (Q9963) As Ordered ONE (11:46)
[2019-09-01] MEDS: GASTROGRAFIN SOLUTION 30ML PO SCH ×2 (11:52→12:20)
[2019-09-01] MEDS ORDERED: ISOVUE-370 76% 100ML VIAL As Ordered ONE (13:34)
--- NOTE | 2019-09-01 14:33 | REP ---
CT ABDOMEN AND PELVIS WITH IV AND ORAL CONTRAST: HISTORY: Generalized abdomen pain. Comparison CT study August 16, 2019 and June 12, 2019. CT CONTRAST DOSE: 100 mL of intravenous Isovue 370. CT FINDINGS: Digital preliminary physician office specialist radiograph demonstrates multiple scattered surgical clips and extensive vascular calcification. Bowel gas pattern is unremarkable. There is a centrally calcified granuloma in the lingula at the left lung base. There is a focus of peripheral parenchymal consolidation in the left lower lobe at the left lung base. This is a new finding compared to the recent prior studies. This has central area of excavation or cavitation. A necrotic pneumonia or healing pneumonia could have this appearance. It measures 2.6 cm in greatest diameter. The lung bases are otherwise clear. There is no evidence of pleural effusion or upper abdominal ascites. The liver and the spleen are normal in size homogeneous in texture. Cardiomegaly is observed as before. Normal adrenal glands are seen. No abnormalities noted in the pancreas. The gallbladder is surgically absent. Kidneys enhance symmetrically. There is some cortical scarring in the lower pole of the left kidney and mild diffuse atrophy is seen. Abdominal aortic aneurysm is again seen with aneurysmal dilation of the proximal aorta just beyond the renal artery origins, 3.4 cm AP. The mid aorta is normal in caliber and the distal aorta just above the bifurcation is aneurysmal, 3.2 cm AP. Flow persists in the PRAVEENA, SMA, celiac axis. Recent CT angiography shows stenoses of these visceral arteries. Pelvic CT images demonstrate left colonic diverticulosis without CT evidence of diverticulitis. Urinary bladder is unremarkable. The uterus is surgically absent. There is a small epigastric ventral hernia transmitting abdominal fat. No other abdominal wall defect is seen. IMPRESSION: Extensive vascular calcification and atherosclerotic disease with aneurysmal abdominal aorta unchanged from the recent CT study. Post surgical clips. The uterus and gallbladder are surgically absent. Left colonic diverticulosis. Broad epigastric ventral hernia transmitting abdominal fat. No acute abdominal abnormality. There is however a focus of new consolidation in the left lower lobe at the left lung base anteriorly 2.7 cm in greatest diameter. Question recent pneumonia. Electronically Signed by Keon Van MD 09/01/2019 03:11 P
[2019-09-01 15:00] VITALS: BP 185/94
== END 2019-09-01 15:30 | disposition home or self-care (01) ==
LOC: M ED 09:39 → EDBD 09:39 → M ED 15:30
DX: K92.2 Gastrointestinal hemorrhage, unspecified (principal); R91.8 Other nonspecific abnormal finding of lung field; I11.9 Hypertensive heart disease without heart failure; I70.0 Atherosclerosis of aorta; E78.5 Hyperlipidemia, unspecified; Z79.52 Long term (current) use of systemic steroids; Z79.899 Other long term (current) drug therapy; Z87.891 Personal history of nicotine dependence
CPT/HCPCS: 36415; 74177; 80048; 80076; 83690; 85025; 85610; 85730; 86850; 86900; 86901; 87507; 93041; 99285; Q9967

== ENCOUNTER → 2019-09-13 | Outpatient (POV) | payer MEDICARE, MEDICAID ==
[~2019-09-13] MED LIST changes: +PRED10PA PO
--- NOTE | 2019-09-19 09:07 | IRCOV ---
[facility] IR Consult Office Visit IR Consult Office Visit DATE: Sep 13, 2019 Patient agreed to this telephone consultation. Duration of call was 20 minutes. REASON FOR CONSULTATION/CHIEF COMPLAINT: Abdominal pain. Mesenteric ischemia. HISTORY OF PRESENT ILLNESS: 89 female with CAD, prior quadruple bypass, coronary stenting and RI x 3 presents with 3 years of abdominal pain. She reports this is located in the middle of the abdomen and happens every day. She denies trigger factors and denies it's related to before or after food. She states it is there first thing in the morning when she wakes up. No nausea or vomiting. No loss in weight. No hematemesis. No melena. She describes bright red blood mixed with s tools every other day. These are painless bowel movements. She reports watery brown diarrhea everyday. Intermittently she gets intense abdominal pain associated with bright red bowel movements and end up in the hospital for a few days. She's had repeated clips placed endoscopically in her intestines. She denies heavy alcohol use. Refraining from fatty foods has improved her symptoms of late. No recent blood transfusions. ALLERGIES: Please see below. HOME MEDICATIONS: Please see below. PAST MEDICAL HISTORY: Chronic CAD/CABG/dyslipidemia Iron deficiency anemia Chronic hypertension. Open angle glaucoma PAST SURGICAL HISTORY: CABG Colectomy for small bowel obstruction with bleed at anastomosis site Partial colectomy for colon cancer Cholecystectomy Hysterectomy Tonsillectomy Right total knee replacement FAMILY HISTORY: non contributory SOCIAL HISTORY: ex smoker. 5 oz wine every night. Denies drugs. REVIEW OF SYSTEMS: Otherwise negative. PHYSICAL EXAMINATION: No video on patient side LABORATORY DATA: 09/01/19 Hgb 11.2 HCT 35.6 MCV 89.7 Iron 40 Transferrin saturation 12.1 % WBC 10.1 PLT 261 Na 141 K 3.6 BUN 17 Creatinine 0.83 Imaging: I personally reviewed the CTA abdomen from August 2019. There is narrowing at the origin of the celiac artery which remains patent. The SMA has calcifications proximally but patent without dilation. The inferior mesenteric artery is widely patent. There is no hypertrophy of the gastroduodenal arcade. 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 ASSESSMENT/PLAN: 89 female with chronic abdominal pain not related to food but acute episodes of abdominal exacerbation associated with intense pain and bright blood per rectum. She has 3 out of 3 mesenteric vessels patent. I think she is likely suffering acute episode of mesenteric ischemia related to embolic shower from abdominal aneurysm and/or dilated atrium. She cannot be treated with anticoagulants due to GI bleeds but daily Aspirin 81 mg may reduce her risks of acute ischemia of the mesenterics and coronary. I don't think celiac stenting will improve her chronic symptoms as she has 3 vessels patent and no chronic mesenteric angina. I spent 20 minutes in consultation with the patient. Thank you for this referral. [facility] fax number [phone] Ybarra PCP Allergies Coded Allergies: MARIE Inhibitors (Verified Allergy, Intermediate, SWELLING, 09/01/19) Aminoglycosides (Verified Allergy, Intermediate, SWELLING, 09/01/19) bacitracin (Verified Allergy, Intermediate, SWELLING, 09/01/19) enalapril (Verified Allergy, Intermediate, SWELLING, 09/01/19) lisinopril (Verified Allergy, Intermediate, SWELLING, 09/01/19) neomycin (Verified Allergy, Intermediate, SWELLING, 09/01/19) polymyxin B (Verified Allergy, Intermediate, SWELLING, 09/01/19) simvastatin (Verified Allergy, Intermediate, SWELLING, 09/01/19) terbinafine (Verified Allergy, Intermediate, SWELLING, 09/01/19) morphine (Verified Adverse Reaction, Severe, psychosis, 09/01/19) meloxicam (Verified Adverse Reaction, Intermediate, HALLUCINATIONS, 09/01/19) Home Medications Scheduled Atorvastatin Calcium (Atorvastatin Calcium), 40 MG PO QHS, (Reported) Calcium Polycarbophil (Fibercon), 625 MG PO BID, (Reported) Carvedilol (Carvedilol), 3.125 MG PO BID, (Reported) Cholecalciferol (Vitamin D3) (Vitamin D3), 125 MCG PO DAILY, (Reported) Cyanocobalamin (Vitamin B-12) (Vitamin B-12), 1,000 MCG PO DAILY, (Reported) Ferrous Gluconate (Ferrous Gluconate), 324 MG PO Q2D, (Reported) Gabapentin (Gabapentin), 100 MG PO TID, (Reported) Isosorbide Mononitrate (Isosorbide Mononitrate ER), 30 MG PO DAILY, (Reported) Latanoprost (Xalatan), 1 DROP OU QHS, (Reported) Lidocaine (Lidocaine), 1 DOSE EXT QHS, (Reported) Multivitamin (Tab-A-Sully), 1 TAB PO DAILY, (Reported) Mv-Min/FA/Vit K/Lycop/Lut/Zeax (Ocuvite Eye Plus Multi Tablet), 1 TAB PO DAILY, (Reported) Pantoprazole Sodium (Pantoprazole Sodium), 20 MG PO DAILY, (Reported) Prednisone (Prednisone), 1 TAB PO DAILY, (Reported) Sertraline HCl (Sertraline HCl), 50 MG PO DAILY, (Reported) Scheduled PRN Acetaminophen (Tylenol 8 Hour), 650 MG PO TID PRN for PAIN, (Reported) Hyoscyamine Sulfate (Hyoscyamine Sulfate), 0.125 MG PO QID PRN for ABDOMINAL PAIN, (Reported) Lactose-Reduced Food (Ensure Original), 237 ML PO DAILY PRN for SUPPLEMENT, (Reported) Loperamide HCl (Anti-Diarrheal), 2 MG PO ASDIRECTED PRN for DIARRHEA, (Reported) Ondansetron HCl (Ondansetron HCl), 4 MG PO TID PRN for NAUSEA, (Reported) DANIEL GARY MD Sep 19, 2019 09:07
== END ==
LOC: M IRPOV 09:37
PROVIDERS: ATTEND Radiology Diagnostic Radiology
DX: R10.9 Unspecified abdominal pain (principal); G89.29 Other chronic pain; K62.5 Hemorrhage of anus and rectum; I10 Essential (primary) hypertension; I25.10 Atherosclerotic heart disease of native coronary artery without angina pectoris; I25.2 Old myocardial infarction; E78.5 Hyperlipidemia, unspecified; D50.9 Iron deficiency anemia, unspecified; H40.019 Open angle with borderline findings, low risk, unspecified eye; Z79.899 Other long term (current) drug therapy; Z87.891 Personal history of nicotine dependence; Z88.1 Allergy status to other antibiotic agents; Z88.5 Allergy status to narcotic agent; Z88.8 Allergy status to other drugs, medicaments and biological substances; Z95.5 Presence of coronary angioplasty implant and graft; Z96.651 Presence of right artificial knee joint

== ENCOUNTER 2020-01-18 18:09 | Inpatient (IN) | payer MEDICARE, MEDICAID ==
[~2020-01-18 18:09] MED LIST changes: -PANT20TA2 PO; +PANT20TA6 PO; -TAB-TAB PO; +TAB-TAB2 PO
[2020-01-18] MEDS ORDERED: PANTOPRAZOLE 40MG TAB (PROTONIX) PO SCH (21:00)
[2020-01-18 22:30] VITALS: BP 166/76
[2020-01-18] MEDS: NS 1,000 ML IV SCH (22:36)
--- NOTE | 2020-01-18 22:41 | HPEPDOC ---
[facility] Medical History & Physical Date of Admission Jan 18, 2020 Date of Service: Jan 18, 2020 Attending Physician: VAN ORLANDO MD History and Physical TIME OF SERVICE: 1155pm CHIEF COMPLAINT: bleeding from rectum HISTORY OF PRESENT ILLNESS: This 89 yr old was admitted to [facility] in May for LGIB 2/2 bleeding at a site of anastomosis where she previously had surgery. Today she presented to [facility] w c/o of 2 episodes of bright red and dark brown stools that begun yesterday. She denied vomiting but also had "dull, heavy", 12/10 in severity, lower abdominal pain that moved to her back and upper abdomen. She denied having chest pain, dizziness or palpitations. She had a fall on Thursday while walking without her walker. She hit her head and developed a large bruise at the left lower half of her face. At [place] her Hg was 9.9 and coags were wnl. The EKG showed NSR w inverted T waves similar to the EKG done in May. Transfer was requested for GI eval. REVIEW OF SYSTEMS: 12 point review of systems negative except as listed in HPI PAST MEDICAL/ SURGICAL HISTORY: Chronic CAD/CABG/dyslipidemia Polymyalgia rheumatica Iron deficiency anemia Chronic hypertension Open angle glaucoma Colectomy for small bowel obstruction with bleed at anastomosis site Partial colectomy for colon cancer Cholecystectomy Hysterectomy Tonsillectomy Right total knee replacement SOCIAL HISTORY: Former smoker Takes alcohol occasionally Does not use recreational drugs FAMILY HISTORY: mother and father both ALLERGIES: Please see below. HOME MEDICATIONS: Please see below. PHYSICAL EXAMINATION: Vital Signs Date Time Temp Pulse Resp B/P (MAP) Pulse Ox O2 Delivery O2 Flow Rate FiO2 01/19/20 02:45 68 143/67 01/19/20 04:06 98.6 16 99 Room Air GEN: well-nourished / well developed/ NAD INTEGUMENT: not flushed/ not jaundice / has a large bruise at the right lower half of her face HEENT: lips acyanotic /mucus membranes moist and pink / sclera anicteric/ no conjunctival palor CVS: RRR/NMRG/ no lower extremity edema LUNGS: able to speak full sentences without stopping to take a breath / no coughing / lungs are clear to auscultation bilaterally on room air ABDOMEN: Contour (distended,) / soft & very tender with palpation MSK/EXTREMITIES: NCAT NEURO: CN 2-12 are grossly intact / speech is not dysarthric PSYCH: alert and oriented to person place and time/ able to understand and follow all commands LABORATORY DATA: 01/18/20 23:53 IMAGING: n/a MICROBIOLOGY: Please see below. ASSESSMENT: 89 yr old w hx of chronic CAD, CABG, dyslipidemia, GRIS, HTN, multiple abdominal surgeries and LGIB 2/2 bleeding at a site of anastomosis who presented to [facility] w melena and BRBPR and was transferred here for GI eval. PLAN: 1. Acute blood loss anemia 2/2 GI Bleed She reports having both dark stools and BRBPR Cause TBD She reports being taken off ASA recently She is on steroids which predisposes her to stress ulcers Plan: admit to PCU / telemetry / orthostats / CLD w IVF pending GI consult / type & screen, f/u iron studies, coags, serial Hg & stool occult / c/w PPI 2. Polymyalgia rheumatica Plan:c/w prednisone for now 3. Chronic CAD/CABG/dyslipidemia Plan: atorvastatin 4.Depression Plan: sertraline DVT PROPHYLAXIS: SCDs DISPOSITION: home after more than 2 midnight's stay Home Medications Scheduled Atorvastatin Calcium (Atorvastatin Calcium) 40 Mg Tablet, 40 MG PO QHS Cholecalciferol (Vitamin D3) (Vitamin D3) 1,000 Unit Tablet, 1,000 UNITS PO DAILY Cyanocobalamin (Vitamin B-12) (Vitamin B-12) 1,000 Mcg Tablet, 1,000 MCG PO DAILY Fentanyl (Fentanyl) 25 Mcg Patch.td72, 25 MCG TD Q3RD PLACED ON AT QHS Labetalol HCl (Labetalol HCl) 100 Mg Tablet, 100 MG PO BID Lactose-Reduced Food (Ensure Liquid) 237 Ml Liquid, 237 ML PO WM Latanoprost (Xalatan) 0.005% 2.5ML Drops, 1 DROP OU QHS Lidocaine (Lidocaine) 120 Gm Oint...g., 1 DOSE EXT QHS APPLIES TO RIGHT HAND AND WRIST Magnesium Oxide (Magnesium Oxide) 400 Mg Tablet, 400 MG PO DAILY Multivitamin (Tab-A-Sully) 1 Each Tablet, 1 TAB PO DAILY Mv-Min/FA/Vit K/Lycop/Lut/Zeax (Ocuvite Eye Plus Multi Tablet) 1 Each Tablet, 1 TAB PO DAILY Pantoprazole Sodium (Pantoprazole Sodium) 40 Mg Tablet.dr, 40 MG PO BID Potassium Chloride (Potassium Chloride) 10 Meq Capsule.er, 10 MEQ PO DAILY Prednisone (Prednisone) 10 Mg Tablet, 10 MG PO DAILY TAKES AT 1200 Sertraline HCl (Sertraline HCl) 50 Mg Tablet, 50 MG PO DAILY Scheduled PRN Acetaminophen (Tylenol 8 Hour) 650 Mg Tablet.er, 650 MG PO TID PRN for ABDOMINAL PAIN Hyoscyamine Sulfate (Hyoscyamine Sulfate) 0.125 Mg Tab.rapdis, 0.125 MG PO QID PRN for ABDOMINAL PAIN Inulin/Chromium Picolinate (Fiber Select Gummies Tab Chew) 1 Each Tab.chew, 2 TAB PO BID PRN for CONSTIPATION Loperamide HCl (Anti-Diarrheal) 2 Mg Tablet, 2 MG PO ASDIRECTED PRN for DIARRHEA TWO TABLETS AFTER FIRST LOOSE STOOL, THEN 1 TABLET THERE AFTER NEEDED Ondansetron HCl (Ondansetron HCl) 4 Mg Tablet, 4 MG PO TID PRN for NAUSEA Sucralfate (Sucralfate) 1 Gm/10 Ml Oral.susp, 1 GM PO QID PRN for GI BLEED Allergies Coded Allergies: MARIE Inhibitors (Verified Allergy, Intermediate, SWELLING, 09/01/19) Aminoglycosides (Verified Allergy, Intermediate, SWELLING, 09/01/19) bacitracin (Verified Allergy, Intermediate, SWELLING, 09/01/19) enalapril (Verified Allergy, Intermediate, SWELLING, 09/01/19) lisinopril (Verified Allergy, Intermediate, SWELLING, 09/01/19) neomycin (Verified Allergy, Intermediate, SWELLING, 09/01/19) polymyxin B (Verified Allergy, Intermediate, SWELLING, 09/01/19) simvastatin (Verified Allergy, Intermediate, SWELLING, 09/01/19) terbinafine (Verified Allergy, Intermediate, SWELLING, 09/01/19) morphine (Verified Adverse Reaction, Severe, psychosis, 09/01/19) meloxicam (Verified Adverse Reaction, Intermediate, HALLUCINATIONS, 09/01/19) A-FIB/CHADSVASC A-FIB History Current/History of A-Fib/PAF?: No Current PO Anticoag Therapy: No VAN ORLANDO MD Jan 18, 2020 22:41
[2020-01-18] MEDS ORDERED: ACETAMINOPHEN TAB 650MG DOSE (2X325MG) PO PRN (22:45)
[2020-01-18] MEDS ORDERED: MOM 30ML SUSPENSION UDC PO PRN (22:45)
[2020-01-18] MEDS ORDERED: MAALOX 30 ML SUSP *UDC PO PRN (22:45)
[2020-01-19] VITALS (7 sets, daily range): BP systolic 99–162; BP diastolic 55–84
[2020-01-19 00:17] LABS: HEMATOCRIT 31.7 % (36.0-47.0); HEMOGLOBIN 9.9 g/dl (12.0-15.5); MEAN CORPUSCULAR HEMOGLOBIN 26.5 pg (27.0-33.0); MEAN CORPUSCULAR HGB CONC 31.2 g/dl (32.0-36.5); MEAN CORPUSCULAR VOLUME 84.8 fl (80.0-96.0); PLATELET COUNT, AUTOMATED 214 10^3/uL (150-450); RED BLOOD COUNT 3.74 10^6/uL (4.00-5.40); WHITE BLOOD COUNT 9.7 10^3/uL (4.0-10.0)
[2020-01-19 00:30] LABS: INR 1.06; PARTIAL THROMBOPLASTIN TIME 26.3 SECONDS (24.2-38.5)
[2020-01-19 00:43] LABS: PERCENT SATURATION 14.9 % (13.2-45.0)
[2020-01-19 00:44] LABS: ALT/SGPT 19 U/L (12-78); BILIRUBIN,TOTAL 0.6 MG/DL (0.2-1.0); BLOOD UREA NITROGEN 18 MG/DL (7-18); CALCIUM LEVEL 8.7 MG/DL (8.8-10.2); CARBON DIOXIDE LEVEL 29 MEQ/L (21-32); CHLORIDE LEVEL 103 MEQ/L (98-107); CREATININE FOR GFR 0.77 MG/DL (0.55-1.30); GLOMERULAR FILTRATION RATE > 60.0 (>32); GLUCOSE, FASTING 108 MG/DL (70-100); POTASSIUM SERUM 3.6 MEQ/L (3.5-5.1); SODIUM LEVEL 136 MEQ/L (136-145); TOTAL PROTEIN 6.4 GM/DL (6.4-8.2)
[2020-01-19] MEDS ORDERED: SUCR1ORA2 PO (01:03)
[2020-01-19] MEDS ORDERED: LABE10TAB PO (01:03)
[2020-01-19] MEDS ORDERED: MAGN400T3 PO (01:03)
[2020-01-19] MEDS ORDERED: FIBECHW4 PO (01:03)
[2020-01-19] MEDS ORDERED: ENSULIQ8 PO (01:03)
[2020-01-19] MEDS ORDERED: PANT40TA29 PO (01:03)
[2020-01-19] MEDS ORDERED: FENT1DIS14 TD (01:03)
[2020-01-19] MEDS ORDERED: PRED10TA2 PO (01:03)
[2020-01-19] MEDS ORDERED: HYOS0.1214 PO (01:03)
[2020-01-19] MEDS ORDERED: POTA10CA32 PO (01:03)
[2020-01-19] MEDS ORDERED: D31000TA2 PO (01:03)
[2020-01-19] MEDS ORDERED: ONDANSETRON 4 MG TAB PO PRN (01:45)
[2020-01-19] MEDS ORDERED: SUCRALFATE SUSP 1GM/10ML UD PO PRN (01:45)
[2020-01-19] MEDS ORDERED: HYOSCYAMINE SULFATE 0.125 MG SUBL TABLET PO PRN (01:45)
[2020-01-19] MEDS ORDERED: FENTANYL REMOVAL DOCUMENTATION MISC XX SCH (01:45)
[2020-01-19] MEDS: LIDOCAINE 5% OINT 30 GM EXT SCH ×2 (02:45→21:04)
[2020-01-19] MEDS: LABETALOL 100 MG TAB PO SCH ×3 (02:45→21:03)
[2020-01-19] MEDS: LATANOPROST 0.005% OPHTH SOLN 2.5 ML OU SCH ×2 (02:45→21:05)
[2020-01-19 04:48] LABS: HEMATOCRIT 30.2 % (36.0-47.0); HEMOGLOBIN 9.7 g/dl (12.0-15.5); MEAN CORPUSCULAR HEMOGLOBIN 27.1 pg (27.0-33.0); MEAN CORPUSCULAR HGB CONC 32.1 g/dl (32.0-36.5); MEAN CORPUSCULAR VOLUME 84.4 fl (80.0-96.0); PLATELET COUNT, AUTOMATED 198 10^3/uL (150-450); RED BLOOD COUNT 3.58 10^6/uL (4.00-5.40); WHITE BLOOD COUNT 9.1 10^3/uL (4.0-10.0)
[2020-01-19 05:07] LABS: BLOOD UREA NITROGEN 17 MG/DL (7-18); CALCIUM LEVEL 8.1 MG/DL (8.8-10.2); CARBON DIOXIDE LEVEL 27 MEQ/L (21-32); CHLORIDE LEVEL 107 MEQ/L (98-107); CREATININE FOR GFR 0.64 MG/DL (0.55-1.30); GLOMERULAR FILTRATION RATE > 60.0 (>32); GLUCOSE, FASTING 78 MG/DL (70-100); POTASSIUM SERUM 3.5 MEQ/L (3.5-5.1); SODIUM LEVEL 140 MEQ/L (136-145)
[2020-01-19] MEDS: PANTOPRAZOLE 40MG VIAL (C9113 PER 1) IV SCH ×2 (08:58→21:04)
[2020-01-19] MEDS: OCUVITE 1 TAB PO SCH (08:58)
[2020-01-19] MEDS: POTASSIUM CHLORIDE 10 MEQ SR TABLET PO SCH (08:58)
[2020-01-19] MEDS: SERTRALINE HCL 50 MG TAB PO SCH (08:59)
[2020-01-19 10:28] LABS: FOLATE 18.4 NG/ML (>5.4)
[2020-01-19] MEDS: predniSONE 10 MG TAB PO SCH (11:18)
--- NOTE | 2020-01-19 12:43 | IPNPDOC ---
Text Note Date of Service The patient was seen on 01/19/20. NOTE Subjective: Patient was seen and examined this morning at bedside. Patient says she's doing well with some mild abdominal discomfort but feels better from before. She was transferred here overnight from [facility] for evaluation by GI for suspected lower GI bleed. This is been a chronic problem patient says for the past 2 years that is intermittent and comes on and off. Says she's been having melanotic stools mixed with some bright red blood per rectum over the past 2 days but has since slowed down. Denies any dizziness currently but her orthostatic vitals were positive on admission. She denies any chest pain or shortness of breath denies palpitations. Denies any constipation or diarrhea. Denies fevers chills. Objective: Constitutional: Awake and alert, in no apparent distress ENT: Sclera are clear. Mucosa is moist. Has a large ecchymotic bruise on the right lower half of her face. Respiratory: Lungs CTA bilaterally. No respiratory distress. No use of acces dao muscles. Cardiovascular: RRR S1 and S2 are rayne Gastrointestinal: Abdomen is soft, mildly distended, mildly diffusely tender, BS present. There is no rebound tenderness on palpation of her abdomen. Musculoskeletal: No edema. Neurologic: No focal neurological deficit. Mental Status: A&O x3, normal affect Skin: Warm, dry Assessment/plan: 89 yr old w hx of chronic CAD, CABG, dyslipidemia, GRIS, HTN, multiple abdominal surgeries and LGIB 2/2 bleeding at a site of anastomosis who presented to [facility] w melena and BRBPR and was transferred here for GI eval. # Acute blood loss anemia 2/2 GI Bleed: Reports having both dark stools and BRBPR. She reports being taken off ASA recently. She is on steroids which predisposes her to stress ulcers. Tele. Orthostats positive. CLD and IVFs. Coags. IV PPI BID. Trend HH. GI eval, plan for EGD/C-scope tomorrow. Bowl prep today. hh # Polymyalgia rheumatica: c/w prednisone for now # Chronic CAD/CABG/dyslipidemia: allergic to statin. Hold ASA. # Depression: continue sertraline # DVT prophylaxis: SCDs A Yousef Hospitalist VS,Timur, I+O VS, Timur, I+O Laboratory Tests 01/18/20 23:53 01/19/20 04:20 01/19/20 11:55 Vital Signs Date Time Temp Pulse Resp B/P (MAP) Pulse Ox O2 Delivery O2 Flow Rate FiO2 01/19/20 12:00 96.8 66 18 147/71 (96) 94 Room Air I&O- Last 24 Hours up to 6 AM 01/19/20 05:59 Intake Total 0 ml Output Total 300 ml Balance -300 ml LUIS MILLER MD Jan 19, 2020 12:43
[2020-01-19 16:15] LABS: HEMATOCRIT 30.8 % (36.0-47.0); HEMOGLOBIN 9.6 g/dl (12.0-15.5)
[2020-01-19] MEDS: NS 1,000 ML IV SCH (16:20)
[2020-01-19] MEDS ORDERED: GOLYTELY SOLN 4000 ML BTL PO ONE (17:45)
[2020-01-19] MEDS ORDERED: BISACODYL 5 MG TAB PO ONE (18:30)
--- NOTE | 2020-01-19 18:46 | CR.PDOC ---
General Date of Consultation: Jan 19, 2020 Referring Provider: LUIS MILLER MD Attending Physician: BRANDI SWENSON MD Consultation Primary physician/ hospitalist: - Dr. Miller Reason for consult: - Rectal bleeding. HPI: 89 yr old was admitted to [facility] in May for LGIB 2/2 bleeding at a site of anastomosis where she previously had surgery. Today she presented to [facility] w c/o of 2 episodes of bright red and dark brown stools that begun yesterday. She denied vomiting but also had "dull, heavy", 12/10 in severity, lower abdominal pain that moved to her back and upper abdomen. She denied having chest pain, dizziness or palpitations. She had a fall on Thursday while walking without her walker. She hit her head and developed a large bruise at the left lower half of her face. At [place] her Hg was 9.9 and coags were wnl. The EKG showed NSR w inverted T waves similar to the EKG done in May. Transfer was requested for GI eval. Pertinent negative GI symptoms: Patient denies fever, sick contacts, recent travel, nausea, vomiting, diarrhea, abdominal pain, loss of appetite, early satiety or unintentional weight loss. No history of hematemesis, melena or hematochezia. Patient reports regular bowel movements. Review of Systems: GI: as stated above CVS: No chest pain, No palpitations, No leg swelling. RS: No Shortness of breath, No Wheezing, no cough CLERK ENTRY LEVEL: No dizziness, No motor weakness, No sensory problems Hematology: No bruising, No gum bleeding, Musculoskeletal: No joint pain, ambulating well. Skin: No rash : No hematuria, No burning sensation of the urine ENT: No ear discharge/ pain, No dysphagia. Eyes: No photophobia. Jaundice Home medications: reviewed. Antithrombotic agents: - [ ] Medical h/o: As above. Surgical h/o: None on abdomen. Social h/o: Alcohol: - [ ] , smoking: [ ] , IVDA/ drugs: [ ] . Family h/o of GI cancers - None Prior Endoscopies: --- EGD: - [ ] --- Colonoscopy: - [ ] Prior GI evaluations: - [ ] Exam: Vitals: reviewed General: Alert and oriented x 3, not in distress HEENT: NO pallor, no icterus. Normal oropharynx, NO cervical lymph nodes. Chest: symmetric with bilateral clear air entry, CVS: S1, S2 heard, normal, no murmurs . Abdomen: non-distended, no surgical scars, soft, non-tender, no palpable masses, normal bowel sounds heard. Rectal exam: Patient refused / Deferred at this time in view of scheduled colonoscopy. Extremities: no pedal edema, pulses palpable. CLERK ENTRY LEVEL: no focal motor or sensory deficits. Moves all extremities Skin: no rash. Labs: reviewed. HCV screening indicated ordered / done OR Not indicated due to age. Imaging: reviewed. 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 - Clear liquid diet and bowel prep. - Will schedule for EGD and Colonoscopy for further evaluation. - The procedure, indications, risks (bleeding, perforation, infection, hypotension, respiratory depression, allergy, need for endotracheal intubation, surgery, colostomy, cardiac arrest, even ), benefits, limitations (e.g., missing a lesion), and all other alternatives (including no intervention) were explained to the patient who understood and agreed for the procedure. Plan of care discussed with patient and primary team. Patient verbalized understanding and agreed with the plan. Vital Signs/I&O Vital Signs Date Time Temp Pulse Resp B/P (MAP) Pulse Ox O2 Delivery O2 Flow Rate FiO2 01/19/20 16:00 97.8 68 18 145/84 (104) 95 Room Air I&O- Last 24 Hours up to 6 AM 01/19/20 06:00 Intake Total 200 ml Output Total 300 ml Balance -100 ml Laboratory Data Labs 24H Laboratory Tests 2 01/18/20 23:53: Nucleated Red Blood Cells % (auto) 0.0, Prothrombin Time 14.0, Prothromb Time International Ratio 1.06, Activated Partial Thromboplast Time 26.3, Anion Gap 4L, Glomerular Filtration Rate > 60.0, Calcium Level 8.7L, Iron Level 41L, Total Iron Binding Capacity 275, Transferrin % Saturation 14.9, Ferritin 616H, Total Bilirubin 0.6, Aspartate Amino Transf (AST/SGOT) 11, Alanine Aminotransferase (ALT/SGPT) 19, Alkaline Phosphatase 62, Total Protein 6.4, Albumin 3.0L, Albumin/Globulin Ratio 0.9L, Vitamin B12 Level 1135H, Folate 18.4 01/19/20 04:20: Nucleated Red Blood Cells % (auto) 0.0, Anion Gap 6L, Glomerular Filtration Rate > 60.0, Calcium Level 8.1L CBC/BMP Laboratory Tests 01/18/20 23:53 01/19/20 04:20 01/19/20 11:55 01/19/20 15:53 Allergies Coded Allergies: MARIE Inhibitors (Verified Allergy, Intermediate, SWELLING, 09/01/19) Aminoglycosides (Verified Allergy, Intermediate, SWELLING, 09/01/19) bacitracin (Verified Allergy, Intermediate, SWELLING, 09/01/19) enalapril (Verified Allergy, Intermediate, SWELLING, 09/01/19) lisinopril (Verified Allergy, Intermediate, SWELLING, 09/01/19) neomycin (Verified Allergy, Intermediate, SWELLING, 09/01/19) polymyxin B (Verified Allergy, Intermediate, SWELLING, 09/01/19) simvastatin (Verified Allergy, Intermediate, SWELLING, 09/01/19) terbinafine (Verified Allergy, Intermediate, SWELLING, 09/01/19) morphine (Verified Adverse Reaction, Severe, psychosis, 09/01/19) meloxicam (Verified Adverse Reaction, Intermediate, HALLUCINATIONS, 09/01/19) Home Medications Scheduled Atorvastatin Calcium (Atorvastatin Calcium) 40 Mg Tablet, 40 MG PO QHS, (Reported) Cholecalciferol (Vitamin D3) (Vitamin D3) 1,000 Unit Tablet, 1,000 UNITS PO DAILY, (Reported) Cyanocobalamin (Vitamin B-12) (Vitamin B-12) 1,000 Mcg Tablet, 1,000 MCG PO DAILY, (Reported) Fentanyl (Fentanyl) 25 Mcg Patch.td72, 25 MCG TD Q3RD, (Reported) PLACED ON AT QHS Labetalol HCl (Labetalol HCl) 100 Mg Tablet, 100 MG PO BID, (Reported) Lactose-Reduced Food (Ensure Liquid) 237 Ml Liquid, 237 ML PO WM, (Reported) Latanoprost (Xalatan) 0.005% 2.5ML Drops, 1 DROP OU QHS, (Reported) Lidocaine (Lidocaine) 120 Gm Oint...g., 1 DOSE EXT QHS, (Reported) APPLIES TO RIGHT HAND AND WRIST Magnesium Oxide (Magnesium Oxide) 400 Mg Tablet, 400 MG PO DAILY, (Reported) Multivitamin (Tab-A-Sully) 1 Each Tablet, 1 TAB PO DAILY, (Reported) Mv-Min/FA/Vit K/Lycop/Lut/Zeax (Ocuvite Eye Plus Multi Tablet) 1 Each Tablet, 1 TAB PO DAILY, (Reported) Pantoprazole Sodium (Pantoprazole Sodium) 40 Mg Tablet.dr, 40 MG PO BID, (Reported) Potassium Chloride (Potassium Chloride) 10 Meq Capsule.er, 10 MEQ PO DAILY, (Reported) Prednisone (Prednisone) 10 Mg Tablet, 10 MG PO DAILY, (Reported) TAKES AT 1200 Sertraline HCl (Sertraline HCl) 50 Mg Tablet, 50 MG PO DAILY, (Reported) Scheduled PRN Acetaminophen (Tylenol 8 Hour) 650 Mg Tablet.er, 650 MG PO TID PRN for ABDOMINAL PAIN, (Reported) Hyoscyamine Sulfate (Hyoscyamine Sulfate) 0.125 Mg Tab.rapdis, 0.125 MG PO QID PRN for ABDOMINAL PAIN, (Reported) Inulin/Chromium Picolinate (Fiber Select Gummies Tab Chew) 1 Each Tab.chew, 2 TAB PO BID PRN for CONSTIPATION, (Reported) Loperamide HCl (Anti-Diarrheal) 2 Mg Tablet, 2 MG PO ASDIRECTED PRN for DIARRHEA, (Reported) TWO TABLETS AFTER FIRST LOOSE STOOL, THEN 1 TABLET THERE AFTER NEEDED Ondansetron HCl (Ondansetron HCl) 4 Mg Tablet, 4 MG PO TID PRN for NAUSEA, (Reported) Sucralfate (Sucralfate) 1 Gm/10 Ml Oral.susp, 1 GM PO QID PRN for GI BLEED, (Rep orted) BRANDI SWENSON MD Jan 19, 2020 18:46
[2020-01-20] VITALS (7 sets, daily range): BP systolic 99–180; BP diastolic 56–78
[2020-01-20] MEDS: NS 1,000 ML IV SCH ×3 (01:44→22:33)
[2020-01-20] MEDS: LABETALOL 100 MG TAB PO SCH ×2 (08:12→21:30)
[2020-01-20] MEDS: POTASSIUM CHLORIDE 10 MEQ SR TABLET PO SCH (08:12)
[2020-01-20] MEDS: OCUVITE 1 TAB PO SCH (08:12)
[2020-01-20] MEDS: PANTOPRAZOLE 40MG VIAL (C9113 PER 1) IV SCH ×2 (08:13→21:28)
[2020-01-20] MEDS: SERTRALINE HCL 50 MG TAB PO SCH (08:13)
[2020-01-20 08:20] LABS: HEMATOCRIT 28.8 % (36.0-47.0); HEMOGLOBIN 8.9 g/dl (12.0-15.5); MEAN CORPUSCULAR HEMOGLOBIN 26.5 pg (27.0-33.0); MEAN CORPUSCULAR HGB CONC 30.9 g/dl (32.0-36.5); MEAN CORPUSCULAR VOLUME 85.7 fl (80.0-96.0); PLATELET COUNT, AUTOMATED 186 10^3/uL (150-450); RED BLOOD COUNT 3.36 10^6/uL (4.00-5.40); WHITE BLOOD COUNT 6.5 10^3/uL (4.0-10.0)
[2020-01-20 08:35] LABS: INR 1.11; PROTHROMBIN TIME 14.5 SECONDS (12.5-14.3)
[2020-01-20 08:37] LABS: BLOOD UREA NITROGEN 13 MG/DL (7-18); CARBON DIOXIDE LEVEL 25 MEQ/L (21-32); CHLORIDE LEVEL 109 MEQ/L (98-107); CREATININE FOR GFR 0.68 MG/DL (0.55-1.30); GLOMERULAR FILTRATION RATE > 60.0 (>32); GLUCOSE, FASTING 72 MG/DL (70-100); POTASSIUM SERUM 3.3 MEQ/L (3.5-5.1); SODIUM LEVEL 141 MEQ/L (136-145)
[2020-01-20] MEDS: predniSONE 10 MG TAB PO SCH (12:12)
--- NOTE | 2020-01-20 14:26 | IPNPDOC ---
Text Note Date of Service The patient was seen on 01/20/20. NOTE Subjective: Patient was seen and examined this morning at bedside. Patient says she's doing well with minimal abdominal discomfort. Denies any dizziness currently but her orthostatic vitals were positive on admission. She denies any chest pain or shortness of breath denies palpitations. Denies any constipation or diarrhea. Denies fevers chills. Denies any further blood in stool. Objective: Constitutional: Awake and alert, in no apparent distress ENT: Sclera are clear. Mucosa is moist. Has a large ecchymotic bruise on the right lower half of her face. Respiratory: Lungs CTA bilaterally. No respiratory distress. No use of accessory muscles. Cardiovascular: RRR S1 and S2 are rayne Gastrointestinal: Abdomen is soft, mildly distended, mildly diffusely tender, BS present. There is no rebound tenderness on palpation of her abdomen. Musculoskeletal: No edema. Neurologic: No focal neurological deficit. Mental Status: A&O x3, normal affect Skin: Warm, dry Assessment/plan: 89 yr old w hx of chronic CAD, CABG, dyslipidemia, GRIS, HTN, multiple abdominal surgeries and LGIB 2/2 bleeding at a site of anastomosis who presented to [facility] w melena and BRBPR and was transferred here for GI eval. # Acute blood loss anemia 2/2 GI Bleed: HH stable. Reports having both dark stools and BRBPR. She reports being taken off ASA recently. She is on steroids which predisposes her to stress ulcers. Tele. Orthostats positive. CLD and IVFs. Coags. IV PPI BID. Trend HH. GI eval, plan for EGD/C-scope today. # Polymyalgia rheumatica: c/w prednisone for now # Chronic CAD/CABG/dyslipidemia: allergic to statin. Hold ASA. # Depression: continue sertraline # DVT prophylaxis: SCDs A Yousef Hospitalist VSTimur, I+O VSTimur, I+O Laboratory Tests 01/19/20 15:53 01/20/20 07:47 Vital Signs Date Time Temp Pulse Resp B/P (MAP) Pulse Ox O2 Delivery O2 Flow Rate FiO2 01/20/20 12:00 97.3 65 14 126/61 (82) 94 Room Air I&O- Last 24 Hours up to 6 AM 01/20/20 06:00 Intake Total 1665 ml Output Total 1525 ml Balance 140 ml LUIS MILLER MD Jan 20, 2020 14:26
[2020-01-20] MEDS ORDERED: propofoL 200 MG/20 ML VIAL As Ordered ONE (18:13)
--- NOTE | 2020-01-20 19:07 | ROOR ---
Patient Name: Mally Leiva Procedure Date: 01/20/2020 2:17 PM Date of : 1930 Age: 89 Room: Main OR Gender: Female Note Status: Finalized Procedure: Upper GI endoscopy Indications: Melena Providers: Freddy Lin MD Referring MD: 2. Inpatient 2. Inpatient, Khadar Arce Md Requesting Provider: Medicines: Monitored Anesthesia Care Complications: No immediate complications. Procedure: Pre-Anesthesia Assessment: - Prior to the procedure, a History and Physical was performed, and patient medications and allergies were reviewed. The patient is competent. The risks and benefits of the procedure and the sedation options and risks were discussed with the patient. All questions were answered and informed consent was obtained. Patient identification and proposed procedure were verified by the physician, the nurse and the anesthesiologist in the procedure room. Mental Status Examination: alert and oriented. Airway Examination: normal oropharyngeal airway and neck mobility. Respiratory Examination: clear to auscultation. CV Examination: normal. Prophylactic Antibiotics: The patient does not require prophylactic antibiotics. Prior Anticoagulants: The patient has taken no previous anticoagulant or antiplatelet agents. ASA Grade Assessment: III - A patient with severe systemic disease. After reviewing the risks and benefits, the patient was deemed in satisfactory condition to undergo the procedure. The anesthesia plan was to use monitored anesthesia care (MAC). Immediately prior to administration of medications, the patient was re-assessed for adequacy to receive sedatives. The heart rate, respiratory rate, oxygen saturations, blood pressure, adequacy of pulmonary ventilation, and response to care were monitored throughout the procedure. The physical status of the patient was re-assessed after the procedure. The Endoscope was introduced through the mouth, and advanced to the second part of duodenum. The upper GI endoscopy was accomplished without difficulty. The patient tolerated the procedure well. Findings: No gross lesions were noted in the entire esophagus. Scattered severe inflammation characterized by erythema, friability, linear erosions, serpentine ulcerations and shallow ulcerations was found in the gastric fundus, in the gastric body and in the gastric antrum. Biopsies were taken with a cold forceps for histology. Verification of patient identification for the specimen was done by the physician and nurse using the patient's name, date and medical record number. Estimated blood loss was minimal. Patchy atrophic mucosa was found in the duodenal bulb and in the second portion of the duodenum. Impression: - No gross lesions in esophagus. - Gastritis. Biopsied. - Duodenal mucosal atrophy. Recommendation: - Patient has a contact number available for emergencies. The signs and symptoms of potential delayed complications were discussed with the patient. Return to normal activities tomorrow. Written discharge instructions were provided to the patient. - High fiber diet. - Use Protonix (pantoprazole) 40 mg PO twice daily - to be taken in morning (1/2 hour before breakfast) and at bedtime ( atleast 3 hours after last meal) for 8 weeks. - Await pathology results. - Return to GI clinic in [facility] (address [address], [address], [place], [facility]) in 4 -- 6 weeks. Please call GI clinic @ [phone] for apppointment date and time. - Return to primary care physician. Procedure Code(s): --- Professional --- 50809, Esophagogastroduodenoscopy, flexible, transoral; with biopsy, single or multiple Diagnosis Code(s): --- Professional --- K29.70, Gastritis, unspecified, without bleeding K31.89, Other diseases of stomach and duodenum K92.1, Melena (includes Hematochezia) CPT copyright 2019 [employer]. All rights reserved. The codes documented in this report are preliminary and upon commercial helicopter pilot review may be revised to meet current compliance requirements. Attending Participation: I personally performed the entire procedure. Freddy Lin MD Freddy Lin MD 01/20/2020 7:06:23 PM Electronically signed by Freddy Lin MD Number of Addenda: 0 Note Initiated On: 01/20/2020 2:17 PM Estimated Blood Loss: Estimated blood loss: none. Estimated blood loss was minimal.
[2020-01-20] MEDS ORDERED: LR 1,000 ML IV SCH (19:30)
--- NOTE | 2020-01-20 20:10 | ROOR ---
Patient Name: Mally Leiva Procedure Date: 01/20/2020 2:18 PM Date of : 1930 Age: 89 Room: Main OR Gender: Female Note Status: Finalized Procedure: Colonoscopy Indications: Melena, Rectal bleeding Providers: Freddy Lin MD Referring MD: 2. Inpatient 2. Inpatient Requesting Provider: Medicines: Monitored Anesthesia Care Complications: No immediate complications. Procedure: Pre-Anesthesia Assessment: - Prior to the procedure, a History and Physical was performed, and patient medications and allergies were reviewed. The patient is competent. The risks and benefits of the procedure and the sedation options and risks were discussed with the patient. All questions were answered and informed consent was obtained. Patient identification and proposed procedure were verified by the physician, the nurse and the anesthesiologist in the procedure room. Mental Status Examination: alert and oriented. Airway Examination: normal oropharyngeal airway and neck mobility. Respiratory Examination: clear to auscultation. CV Examination: normal. Prophylactic Antibiotics: The patient does not require prophylactic antibiotics. Prior Anticoagulants: The patient has taken no previous anticoagulant or antiplatelet agents. ASA Grade Assessment: III - A patient with severe systemic disease. After reviewing the risks and benefits, the patient was deemed in satisfactory condition to undergo the procedure. The anesthesia plan was to use monitored anesthesia care (MAC). Immediately prior to administration of medications, the patient was re-assessed for adequacy to receive sedatives. The heart rate, respiratory rate, oxygen saturations, blood pressure, adequacy of pulmonary ventilation, and response to care were monitored throughout the procedure. The physical status of the patient was re-assessed after the procedure. The Colonoscope was introduced through the anus and advanced to the terminal ileum, with identification of the appendiceal orifice and IC valve. The colonoscopy was performed without difficulty. The patient tolerated the procedure well. The quality of the bowel preparation was fair. The terminal ileum and the rectum were photographed. Scope insertion time was 4 minutes. Scope withdrawal time was 9 minutes. The total duration of the procedure was 14 minutes. Findings: The perianal and digital rectal examinations were normal. The jersey-terminal ileum appeared normal. There was evidence of a prior functional end-to-end ileo-colonic anastomosis in the ascending colon. This was patent and was characterized by healthy appearing mucosa. The anastomosis was traversed. Two sessile polyps were found in the recto-sigmoid colon. The polyps were 5 to 8 mm in size. These polyps were removed with a cold biopsy forceps. Resection and retrieval were complete. Verification of patient identification for the specimen was done by the physician and nurse using the patient's name, date and medical record number. Estimated blood loss was minimal. Non-bleeding external and internal hemorrhoids were found during retroflexion. The hemorrhoids were medium-sized. Impression: - Preparation of the colon was fair. - The examined portion of the ileum was normal. - Patent functional end-to-end ileo-colonic anastomosis, characterized by healthy appearing mucosa. - Two 5 to 8 mm polyps at the recto-sigmoid colon, removed with a cold biopsy forceps. Resected and retrieved. - Non-bleeding external and internal hemorrhoids. Recommendation: - Patient has a contact number available for emergencies. The signs and symptoms of potential delayed complications were discussed with the patient. Return to normal activities tomorrow. Written discharge instructions were provided to the patient. - High fiber diet. - Patient has a contact number available for emergencies. The signs and symptoms of potential delayed complications were discussed with the patient. Return to normal activities tomorrow. Written discharge instructions were provided to the patient. - Continue present medications. - Await pathology results. - Repeat colonoscopy is not recommended due to current age (66 years or older) for surveillance and depending on clinical and functional status. - Return to GI clinic in [facility] (address [address], [address], [place], [address]) in 4 -- 6 weeks. Please call GI clinic @ [phone] for apppointment date and time. - Follow the recommendations as per the other procedure note. Procedure Code(s): --- Professional --- 32480, Colonoscopy, flexible; with biopsy, single or multiple Diagnosis Code(s): --- Professional --- K64.8, Other hemorrhoids Z98.0, Intestinal bypass and anastomosis status K63.5, Polyp of colon K92.1, Melena (includes Hematochezia) K62.5, Hemorrhage of anus and rectum CPT copyright 2019 [employer]. All rights reserved. The codes documented in this report are preliminary and upon account maintenance representative review may be revised to meet current compliance requirements. Attending Participation: I personally performed the entire procedure. Freddy Lin MD Freddy Lin MD 01/20/2020 8:09:55 PM Electronically signed by Freddy Lin MD Number of Addenda: 0 Note Initiated On: 01/20/2020 2:18 PM Estimated Blood Loss: Estimated blood loss was minimal.
[2020-01-20] MEDS ORDERED: fentaNYL 25 MCG/HR PATCH TD SCH (21:00)
[2020-01-20] MEDS: LATANOPROST 0.005% OPHTH SOLN 2.5 ML OU SCH (21:31)
[2020-01-20] MEDS: LIDOCAINE 5% OINT 30 GM EXT SCH (21:31)
[2020-01-21 04:00] VITALS: BP_SYST 160; BP_SYST 168; BP_DIAS 70; BP_DIAS 71
[2020-01-21 04:30] LABS: HEMOGLOBIN 8.9 g/dl (12.0-15.5); MEAN CORPUSCULAR HEMOGLOBIN 27.4 pg (27.0-33.0); MEAN CORPUSCULAR HGB CONC 31.8 g/dl (32.0-36.5); MEAN CORPUSCULAR VOLUME 86.2 fl (80.0-96.0); PLATELET COUNT, AUTOMATED 193 10^3/uL (150-450); RED BLOOD COUNT 3.25 10^6/uL (4.00-5.40)
[2020-01-21 04:48] LABS: BLOOD UREA NITROGEN 10 MG/DL (7-18); CALCIUM LEVEL 7.8 MG/DL (8.8-10.2); CARBON DIOXIDE LEVEL 26 MEQ/L (21-32); CHLORIDE LEVEL 111 MEQ/L (98-107); CREATININE FOR GFR 0.67 MG/DL (0.55-1.30); GLOMERULAR FILTRATION RATE > 60.0 (>32); GLUCOSE, FASTING 83 MG/DL (70-100); POTASSIUM SERUM 3.2 MEQ/L (3.5-5.1); SODIUM LEVEL 142 MEQ/L (136-145)
[2020-01-21] MEDS: NS 1,000 ML IV SCH (07:44)
[2020-01-21 08:00] VITALS: BP 188/80
[2020-01-21] MEDS: POTASSIUM CHLORIDE 10 MEQ SR TABLET PO SCH (08:36)
[2020-01-21] MEDS: SERTRALINE HCL 50 MG TAB PO SCH (08:37)
[2020-01-21] MEDS: PANTOPRAZOLE 40MG VIAL (C9113 PER 1) IV SCH (08:37)
[2020-01-21] MEDS: OCUVITE 1 TAB PO SCH (08:37)
[2020-01-21] MEDS: LABETALOL 100 MG TAB PO SCH ×2 (08:45→21:39)
[2020-01-21 09:30] VITALS: BP_SYST 107; BP_SYST 114; BP_SYST 148; BP_DIAS 53; BP_DIAS 56; BP_DIAS 67
[2020-01-21] MEDS ORDERED: POTASSIUM CHLORIDE 10 MEQ SR TABLET PO ONE (10:00)
[2020-01-21] MEDS ORDERED: PANT40TA29 PO (11:08)
--- NOTE | 2020-01-21 11:18 | DS.PDOC ---
Discharge Summary General Date of Admission Jan 18, 2020 at 22:23 Date of Discharge 01/23/2020 Discharge Summary PROCEDURES PERFORMED DURING STAY: EGD, Colonoscopy ADMITTING DIAGNOSES: 1. Melena DISCHARGE DIAGNOSES: 1. Gastritis COMPLICATIONS/CHIEF COMPLAINT: Lower G.i. Bleed. HISTORY OF PRESENT ILLNESS: This 89 yr old was admitted to [facility] in May for LGIB 2/2 bleeding at a site of anastomosis where she previously had surgery. Today she presented to [facility] w c/o of 2 episodes of bright red and dark brown stools that begun yesterday. She denied vomiting but also had "dull, heavy", 12/10 in severity, lower abdominal pain that moved to her back and upper abdomen. She denied having chest pain, dizziness or palpitations. She had a fall on Thursday while walking without her walker. She hit her head and developed a large bruise at the left lower half of her face. At [facility] her Hg was 9.9 and coags were wnl. The EKG showed NSR w inverted T waves similar to the EKG done in May. Transfer was requested for GI eval. HOSPITAL COURSE: 89 yr old w hx of chronic CAD, CABG, dyslipidemia, GRIS, HTN, multiple abdominal surgeries and LGIB 2/2 bleeding at a site of anas tomosis who presented to [facility] w melena and BRBPR and was transferred here for GI eval. and patient underwent EGD and colonoscopy done 01/20/2020. EGD showing gastritis but no acute bleed GI recommending Protonix 40 mg twice a day for 8 weeks. Colonoscopy showing 2 small polyps that were resected. Follow-up with GI in 4-6 weeks to follow-up on pathology results. Hemoglobin has been stable throughout the course of stay in the hospital. Patient declines any further black stools or bleeding per rectum. Cleared by physical therapy. # Polymyalgia rheumatica: c/w prednisone # Chronic CAD/CABG/dyslipidemia: allergic to simvastatin but taking atorvasatin at home which she can continue. Recently taken off aspirin by PCP unsure why. I recommend she follow-up with her primary care doctor to decide whether she needs to continue her aspirin. # Depression: continue sertraline DISCHARGE MEDICATIONS: Please see below. ALLERGIES: Please see below. PHYSICAL EXAMINATION ON DISCHARGE: Constitutional: Awake and alert, in no apparent distress ENT: Sclera are clear. Mucosa is moist. Has a large ecchymotic bruise on the right lower half of her face which has improved significantly during her hospital stay. Respiratory: Lungs CTA bilaterally. No respiratory distress. No use of acces dao muscles. Cardiovascular: RRR S1 and S2 are rayne Gastrointestinal: Abdomen is soft, no distention, nontender, BS present. There is no rebound tenderness on palpation of her abdomen. Musculoskeletal: No edema. Neurologic: No focal neurological deficit. Mental Status: A&O x3, normal affect Skin: Warm, dry LABORATORY DATA: Please see below. PROGNOSIS: fair ACTIVITY: [As tolerated]. DIET: high fiber diet DISPOSITION: [facility] DISCHARGE INSTRUCTIONS: Please follow up with your primary care physician within 1 week from discharge. If you do not have one, please follow up with us to schedule an appointment. Please keep all of your follow up appointments. Please call central to book your appointments with hospital specialists. Please take all your medications as prescribed. Please call/come to Clinic or go to the Emergency Department if - Temp >101, intractable Nausea/Vomiting, Diarrhea, Mouth sores, Headaches, Altered mental status, Seizures, sudden onset of swelling, bleeding, shortness of breath or chest pain. ITEMS TO FOLLOWUP ON ON OUTPATIENT: 1. Follow-up with PCP within 2-5 days of discharge 2. Follow-up in GI clinic in 4-6 weeks Return to GI clinic in [facility] (address [address], [address], [place] [address]) in 4 -- 6 weeks. Please call GI clinic @ [phone] for apppointment date and time. DISCHARGE CONDITION: [Stable]. TIME SPENT ON DISCHARGE: Greater than 40 minutes. Vital Signs/I&Os Vital Signs Date Time Temp Pulse Resp B/P (MAP) Pulse Ox O2 Delivery O2 Flow Rate FiO2 01/21/20 08:45 66 132/80 01/21/20 08:00 99.0 18 96 Room Air I&O- Last 24 Hours up to 6 AM 01/21/20 06:00 Intake Total 4225 ml Output Total 300 ml Balance 3925 ml Laboratory Data Labs 24H Laboratory Tests 2 01/21/20 04:03: Nucleated Red Blood Cells % (auto) 0.0, Anion Gap 5L, Glomerular Filtration Rate > 60.0, Calcium Level 7.8L CBC/BMP Laboratory Tests 01/21/20 04:03 Discharge Medications Scheduled Atorvastatin Calcium (Atorvastatin Calcium) 40 Mg Tablet, 40 MG PO QHS, (Reported) Cholecalciferol (Vitamin D3) (Vitamin D3) 1,000 Unit Tablet, 1,000 UNITS PO DAILY, (Reported) Cyanocobalamin (Vitamin B-12) (Vitamin B-12) 1,000 Mcg Tablet, 1,000 MCG PO DAILY, (Reported) Fentanyl (Fentanyl) 25 Mcg Patch.td72, 25 MCG TD Q3RD, (Reported) PLACED ON AT QHS Labetalol HCl (Labetalol HCl) 100 Mg Tablet, 100 MG PO BID, (Reported) Lactose-Reduced Food (Ensure Liquid) 237 Ml Liquid, 237 ML PO WM, (Reported) Latanoprost (Xalatan) 0.005% 2.5ML Drops, 1 DROP OU QHS, (Reported) Lidocaine (Lidocaine) 120 Gm Oint...g., 1 DOSE EXT QHS, (Reported) APPLIES TO RIGHT HAND AND WRIST Magnesium Oxide (Magnesium Oxide) 400 Mg Tablet, 400 MG PO DAILY, (Reported) Multivitamin (Tab-A-Sully) 1 Each Tablet, 1 TAB PO DAILY, (Reported) Mv-Min/FA/Vit K/Lycop/Lut/Zeax (Ocuvite Eye Plus Multi Tablet) 1 Each Tablet, 1 TAB PO DAILY, (Reported) Pantoprazole Sodium (Pantoprazole Sodium) 40 Mg Tablet.dr, 40 MG PO BID Potassium Chloride (Potassium Chloride) 10 Meq Capsule.er, 10 MEQ PO DAILY, (Reported) Prednisone (Prednisone) 10 Mg Tablet, 10 MG PO DAILY, (Reported) TAKES AT 1200 Sertraline HCl (Sertraline HCl) 50 Mg Tablet, 50 MG PO DAILY, (Reported) Scheduled PRN Acetaminophen (Tylenol 8 Hour) 650 Mg Tablet.er, 650 MG PO TID PRN for ABDOMINAL PAIN, (Reported) Hyoscyamine Sulfate (Hyoscyamine Sulfate) 0.125 Mg Tab.rapdis, 0.125 MG PO QID P RN for ABDOMINAL PAIN, (Reported) Inulin/Chromium Picolinate (Fiber Select Gummies Tab Chew) 1 Each Tab.chew, 2 TAB PO BID PRN for CONSTIPATION, (Reported) Loperamide HCl (Anti-Diarrheal) 2 Mg Tablet, 2 MG PO ASDIRECTED PRN for DIARRHEA , (Reported) TWO TABLETS AFTER FIRST LOOSE STOOL, THEN 1 TABLET THERE AFTER NEEDED Ondansetron HCl (Ondansetron HCl) 4 Mg Tablet, 4 MG PO TID PRN for NAUSEA, (Reported) Sucralfate (Sucralfate) 1 Gm/10 Ml Oral.susp, 1 GM PO QID PRN for GI BLEED, (Reported) Allergies Coded Allergies: MARIE Inhibitors (Verified Allergy, Intermediate, SWELLING, 09/01/19) Aminoglycosides (Verified Allergy, Intermediate, SWELLING, 09/01/19) bacitracin (Verified Allergy, Intermediate, SWELLING, 09/01/19) enalapril (Verified Allergy, Intermediate, SWELLING, 09/01/19) lisinopril (Verified Allergy, Intermediate, SWELLING, 09/01/19) neomycin (Verified Allergy, Intermediate, SWELLING, 09/01/19) polymyxin B (Verified Allergy, Intermediate, SWELLING, 09/01/19) simvastatin (Verified Allergy, Intermediate, SWELLING, 09/01/19) terbinafine (Verified Allergy, Intermediate, SWELLING, 09/01/19) morphine (Verified Adverse Reaction, Severe, psychosis, 09/01/19) meloxicam (Verified Adverse Reaction, Intermediate, HALLUCINATIONS, 09/01/19) LUIS MILLER MD Jan 21, 2020 11:18
[2020-01-21] MEDS: predniSONE 10 MG TAB PO SCH (12:09)
[2020-01-21 21:30] VITALS: BP_SYST 120; BP_SYST 140; BP_SYST 160; BP_DIAS 66; BP_DIAS 68
[2020-01-21] MEDS: PANTOPRAZOLE 40MG TAB (PROTONIX) PO SCH (21:31)
[2020-01-21] MEDS: LIDOCAINE 5% OINT 30 GM EXT SCH (21:32)
[2020-01-21] MEDS: LATANOPROST 0.005% OPHTH SOLN 2.5 ML OU SCH (21:32)
[2020-01-21 22:00] VITALS: BP 160/68
[2020-01-22 02:00] VITALS: BP 164/66
[2020-01-22 06:00] VITALS: BP 158/64
[2020-01-22 06:52] LABS: HEMATOCRIT 29.3 % (36.0-47.0); HEMOGLOBIN 9.2 g/dl (12.0-15.5); MEAN CORPUSCULAR HEMOGLOBIN 26.6 pg (27.0-33.0); MEAN CORPUSCULAR HGB CONC 31.4 g/dl (32.0-36.5); MEAN CORPUSCULAR VOLUME 84.7 fl (80.0-96.0); PLATELET COUNT, AUTOMATED 190 10^3/uL (150-450); RED BLOOD COUNT 3.46 10^6/uL (4.00-5.40); WHITE BLOOD COUNT 7.2 10^3/uL (4.0-10.0)
[2020-01-22 07:35] LABS: BLOOD UREA NITROGEN 9 MG/DL (7-18); CALCIUM LEVEL 8.3 MG/DL (8.8-10.2); CARBON DIOXIDE LEVEL 28 MEQ/L (21-32); CHLORIDE LEVEL 108 MEQ/L (98-107); CREATININE FOR GFR 0.69 MG/DL (0.55-1.30); GLOMERULAR FILTRATION RATE > 60.0 (>32); GLUCOSE, FASTING 86 MG/DL (70-100); POTASSIUM SERUM 3.6 MEQ/L (3.5-5.1); SODIUM LEVEL 140 MEQ/L (136-145)
[2020-01-22] MEDS: OCUVITE 1 TAB PO SCH (09:55)
[2020-01-22] MEDS: SERTRALINE HCL 50 MG TAB PO SCH (09:56)
[2020-01-22] MEDS: PANTOPRAZOLE 40MG TAB (PROTONIX) PO SCH ×2 (09:56→20:22)
[2020-01-22] MEDS: POTASSIUM CHLORIDE 10 MEQ SR TABLET PO SCH (09:56)
[2020-01-22] MEDS: LABETALOL 100 MG TAB PO SCH ×2 (09:56→20:28)
[2020-01-22] MEDS: predniSONE 10 MG TAB PO SCH (12:53)
[2020-01-22 13:38] VITALS: BP_SYST 131; BP_SYST 145; BP_DIAS 62
[2020-01-22] MEDS: LATANOPROST 0.005% OPHTH SOLN 2.5 ML OU SCH (20:22)
[2020-01-22] MEDS: LIDOCAINE 5% OINT 30 GM EXT SCH (20:22)
[2020-01-23 06:00] VITALS: BP 144/69
[2020-01-23 08:37] VITALS: BP 142/70
[2020-01-23] MEDS: PANTOPRAZOLE 40MG TAB (PROTONIX) PO SCH (08:37)
[2020-01-23] MEDS: OCUVITE 1 TAB PO SCH (08:37)
[2020-01-23] MEDS: LABETALOL 100 MG TAB PO SCH (08:37)
[2020-01-23] MEDS: POTASSIUM CHLORIDE 10 MEQ SR TABLET PO SCH (08:38)
[2020-01-23] MEDS: SERTRALINE HCL 50 MG TAB PO SCH (08:38)
[2020-01-23] MEDS: predniSONE 10 MG TAB PO SCH (12:07)
== END 2020-01-23 12:41 | DRG 392 ==
LOC: M MSPAV 22:23 → M PCU 23:00 → M MSPAV 01-21 17:33
PROVIDERS: ADMIT General Practice; ATTEND Family Medicine
PROC: 0DBN8ZX Excision of Sigmoid Colon, Via Natural or Artificial Opening Endoscopic, Diagnostic (ICD-10-PCS; 2020-01-20)
PROC: 0DB68ZX Excision of Stomach, Via Natural or Artificial Opening Endoscopic, Diagnostic (ICD-10-PCS; principal; 2020-01-20 16:30)
DX: K29.70 Gastritis, unspecified, without bleeding (principal); D62 Acute posthemorrhagic anemia; K92.1 Melena; I25.10 Atherosclerotic heart disease of native coronary artery without angina pectoris; F32.9 Major depressive disorder, single episode, unspecified; E78.5 Hyperlipidemia, unspecified; M35.3 Polymyalgia rheumatica; D50.9 Iron deficiency anemia, unspecified; K64.4 Residual hemorrhoidal skin tags; H40.10X0 Unspecified open-angle glaucoma, stage unspecified; K64.8 Other hemorrhoids; K63.89 Other specified diseases of intestine; D12.7 Benign neoplasm of rectosigmoid junction; Z85.038 Personal history of other malignant neoplasm of large intestine; Z90.49 Acquired absence of other specified parts of digestive tract; Z96.651 Presence of right artificial knee joint; Z95.1 Presence of aortocoronary bypass graft; Z79.52 Long term (current) use of systemic steroids; Z79.899 Other long term (current) drug therapy; Z88.6 Allergy status to analgesic agent; Z88.8 Allergy status to other drugs, medicaments and biological substances; Z88.1 Allergy status to other antibiotic agents